=== PATIENT | female | born 1950 | race Caucasian/White ===

== ENCOUNTER 2016-08-28 19:25 | Emergency (ER) | payer BC, OTHER ==
--- NOTE | 2016-08-28 19:41 | PDOC ---
History of Present Illness - General History Source: Patient Exam Limitations: No Limitations - History of Present Illness Initial Comments: 08/28/16 20:02 The patient is a 66 year old female with significant past medical history of chronic back pain, and arthritis of the knees who presents to the ED with complaints of left groin pain that began this morning when the patient woke up. She describes the pain as a sharp pain, is non-radiating, but is accompanied with a sensation heaviness in her left leg. She does not relate this pain to her back pain. The patient reports a history of blood clot in her back secondary to surgery a few years ago. She reports taking percocet for her chronic pain- last dose was 5 mg at 5:00 pm. She denies any recent illness, fever, chills, nausea, vomiting, diarrhea, cough, shortness of breath, chest pain. PAST MEDICAL HISTORY: no significant history PAST SURGICAL HISTORY: no significant history FAMILY HISTORY: no pertinent history SOCIAL HISTORY: Pt lives with family and is employed. MEDICATIONS: reviewed ALLERGIES: As per nursing notes General: No fevers or chills, no weakness, no weight loss HEENT: No change in vision. No sore throat,. No ear pain CardioVascular: No chest pain or shortness of breath Respiratory:No cough, or wheezing. Gastrointestinal: no nausea, vomiting, diarrhea or constipation, No rectal bleeding Genitourinary: No dysuria, hematuria, or frequency Musculoskeletal: Left groin pain Neurologic: No headache, vertigo, dizziness or loss of consciousness Psychiatric: nor depression Skin: No rashes or easy bruising Endocrine: no increased thirst or abnormal weight change Allergic: no skin or latex allergy All other systems reviewed and normal GENERAL: The patient is awake, alert, morbidly obese, anxious appearing, and in moderate distress. Tearful at times during the interview. HEAD: Normal with no signs of trauma. EYES: Pupils equal, round and reactive to light, extraocular movements intact, sclera anicteric, conjunctiva clear. EXTREMITIES: No tenderness of bony structures of pelvis or hips, mild tenderness on palpation of interior aspect of left thigh, but no groin tenderness, no palpable groin masses, erythema, or hernia. No palpable cord, no bony tenderness on inside of thigh. No distal edema. Neurovascularly intact Pulses are palpable and normal in the groin, posterior knee, and dorsum of the foot. Extremity is warm and well profuse. NEUROLOGICAL: Normal speech, normal gait. PSYCH: Normal mood, normal affect. SKIN: Warm, Dry, normal turgor, no rashes or lesions noted. <Gardenia Zuluaga - Last Filed: 08/28/16 20:02> - General History Source: Patient Exam Limitations: No Limitations - History of Present Illness Initial Comments: 08/28/16 23:25 A portion of this note was documented by scribe services under my direction. I have reviewed the details of the note, within reason, and agree with the documentation. The case summary and management plan written by me. CT scan shows a partially occlusive deep vein thrombosis with any pro-fundal femoral branch. Assessment and plan: This is a 66-year-old female who came in complaining of pain in her inner thigh. Patient's Doppler does show a partially occlusive DVT. Patient given Lovenox in the emergency room and her family member was taught how to inject her with the Lovenox. Patient discharged home Patient has a primary care doctor she can follow-up with. Patient given instructions as to what to return for. <Roque Krishnamurthy I - Last Filed: 08/28/16 23:33> - General Chief Complaint: Pain, Acute Stated Complaint: LEFT GROIN PAIN Time Seen by Provider: 08/28/16 19:41 Past History <MelvinGardenia barrow - Last Filed: 08/28/16 20:02> <Roque Krishnamurthy I - Last Filed: 08/28/16 23:33> - Past Medical History Allergies/Adverse Reactions: Allergies Allergy/AdvReac Type Severity Reaction Status Date / Time morphine Allergy Mild Rash Verified 08/28/16 19:35 Home Medications: Ambulatory Orders Albuterol Sulfate Inhaler - [Ventolin Hfa Inhaler -] 1 - 2 inh PO QID PRN Amlodipine Besylate 5 mg PO DAILY 08/28/16 Enoxaparin [Lovenox -] 80 mg SQ DAILY #10 disp.syrin 08/28/16 Fenofibrate 40 mg PO HS 08/28/16 Lansoprazole [Prevacid] 30 mg PO DAILY 08/28/16 Oxycodone HCl/Acetaminophen [Percocet 5-325 mg Tablet] 1 - 2 tab PO Q4H PRN Simvastatin 10 mg PO HS 08/28/16 Review of Systems - Review of Systems Able to Perform ROS?: Yes All Other Systems: Reviewed and Negative <Gardenia Zuluaga - Last Filed: 08/28/16 20:02> *Physical Exam - Vital Signs Last Vital Signs Temp Pulse Resp BP Pulse Ox 98.4 F 88 20 140/66 95 08/28/16 19:35 08/28/16 19:35 08/28/16 19:35 08/28/16 19:35 08/28/16 19:35 <Gardenia Zuluaga - Last Filed: 08/28/16 20:02> *DC/Admit/Observation/Transfer - Attestations Scribe Attestion: 08/28/16 20:08 Documentation prepared by Gardenia Zuluaga, acting as forensic medical examiner for Roque Krishnamurthy MD. <issaGardenia - Last Filed: 08/28/16 20:02> - Discharge Dispostion Admit: No <Roque Krishnamurthy I - Last Filed: 08/28/16 23:33> Diagnosis at time of Disposition: DVT (deep venous thrombosis) Qualifiers: DVT location: lower extremity Affected thrombotic vein of extremity: femoral Laterality: left Chronicity: acute Qualified Code(s): I82.412 - Acute embolism and thrombosis of left femoral vein - Discharge Dispostion Disposition: HOME Condition at time of disposition: Good - Patient Instructions Printed Discharge Instructions: DI for Deep Vein Thrombosis Additional Instructions: I sent a prescription to your pharmacy for the injections. U will receive 10 syringes you need to have someone inject 1 syringe a day as discussed and showed in the emergency room. After 10 days it is likely your physician will be able to switch U to oral medication so it is important that you make an appointment for Tuesday to follow up with your physician next week. Return if you develop any chest pain, shortness of breath, pass out or any worsening symptoms. For the pain take your Percocet one or 2 tablets as often as every 4-6 hours as needed note the Percocet will make you constipated and he will make you drowsy. Return to the emergency department immediately with ANY new, persistent or worsening symptoms. Continue any medications as previously prescribed by your physician. You should follow up with your primary doctor as soon as possible regarding today's emergency department visit. . Please make sure your doctor reviews the results of your emergency evaluation. Thank you for coming to the Emergency Department today for your care. It was a pleasure to see you today. Please note that your evaluation is INCOMPLETE until you follow-up with your doctor.
[2016-08-28] MEDS ORDERED: KETOROLAC TROMETHAMINE 60 MG/2 ML VIAL IM ONE (20:02)
[2016-08-28 20:17] VITALS: BP 140/66; PULSE 88; TEMP 98.4; BMI 33.6
[2016-08-28] MEDS ORDERED: ENOXAPARIN NA (PORCINE) 100 MG/1 ML DISP.SYRIN SQ ONE (23:25)
[2016-08-28] MEDS ORDERED: OXYCODONE/APAP 5/325MG COMBO TABLET ONE (23:25)
[2016-08-28] MEDS ORDERED: OXYCODONE/APAP 5/325MG COMBO TABLET PO ONE (23:25)
[2016-08-28] MEDS ORDERED: ENOXAPARIN NA (PORCINE) 80 MG/0.8 ML DISP.SYRIN SQ SCH (23:30)
== END 2016-08-29 00:13 | disposition home or self-care (01) ==
LOC: FER 19:25 → SUPCPDRO 19:25 → FER 08-29 00:13
PROC: 3E023GC Introduction of Other Therapeutic Substance into Muscle, Percutaneous Approach (ICD-10-PCS; principal; 2016-08-28)
PROC: 3E0233Z Introduction of Anti-inflammatory into Muscle, Percutaneous Approach (ICD-10-PCS; 2016-08-28)
DX: I82.412 Acute embolism and thrombosis of left femoral vein (principal); Z86.718 Personal history of other venous thrombosis and embolism; Z79.01 Long term (current) use of anticoagulants; G89.29 Other chronic pain
CPT/HCPCS: 93971-TC; 99282-25

== ENCOUNTER 2016-08-30 05:04 | Emergency (ER) | payer BC, OTHER ==
--- NOTE | 2016-08-30 05:15 | PDOC ---
History of Present Illness - General Chief Complaint: Pain, Acute Stated Complaint: PAIN IN LEFT GROIN Time Seen by Provider: 08/30/16 05:12 History Source: Patient Exam Limitations: No Limitations - History of Present Illness Initial Comments: 08/30/16 05:12 This is a 66-year-old female who comes in complaining of pain in her abdomen where she is giving herself Lovenox injections, pain in her right leg has a diagnosed DVT that was no several days ago when she was here in the emergency room and now complaining of also pain in her left shoulder area. Patient had pain in her left shoulder area but patient said that the area under her arm is swollen she is concerned that he may have a blood clot as well. Patient denies any shortness of breath. Chest pain or any other complaints. PAST MEDICAL HISTORY: no significant history PAST SURGICAL HISTORY: no significant history FAMILY HISTORY: no pertinant history SOCIAL HISTORY: Pt lives with family and is employed. MEDICATIONS: reviewed ALLERGIES: As per nursing notes Review of Systems General: No fevers or chills, no weakness, no weight loss HEENT: No change in vision. No sore throat,. No ear pain CardioVascular: No chest pain or shortness of breath Respiratory:No cough, or wheezing. Gastrointestinal: no nausea, vomitting, diarrhea or constipation, No rectal bleeding Genitourinary: No dysuria, hematuria, or frequency Musculoskeletal: No joint or muscle pain or swelling Neurologic: No headache, vertigo, dizziness or loss of consciousness Psychiatric: nor depression Skin: No rashes or easy bruising Endocrine: no increased thirst or abnormal weight change Allergic: no skin or latex allergy All other systems reviewed and normal GENERAL: The patient is awake, alert, and fully oriented, in no acute distress. HEAD: Normal with no signs of trauma. EYES: Pupils equal, round and reactive to light, extraocular movements intact, sclera anicteric, conjunctiva clear. EXTREMITIES: Normal range of motion, Left lower extremity there is some edema of the foot. Left shoulder there is some tenderness on palpation. There is no palpable tender cord. Neurovascular distal is intact NEUROLOGICAL: Normal speech, normal gait. PSYCH: Normal mood, normal affect. SKIN: Warm, Dry, normal turgor, no rashes or lesions noted 08/30/16 06:37 Doppler ultrasound no DVT of the left upper extremity. Assessment and plan: This is a 66-year-old female who comes in complaining of leg swelling, patient has a diagnosed DVT for which she is taking Lovenox. Abdominal pain in the area of her injections. There is no evidence of infection but there is a small contusion in the area of the injection this is likely the source of her pain And shoulder pain. Patient does have chronic shoulder pain but given the fact she has a DVT I wanted to make sure that there was no additional DVTs of the left upper extremity. Patient had an ultrasound that was negative. Patient discharged home she has no appointment with her primary care doctor this morning and will keep it in follow-up. Past History - Past Medical History Allergies/Adverse Reactions: Allergies Allergy/AdvReac Type Severity Reaction Status Date / Time morphine Allergy Mild Rash Verified 08/30/16 05:05 Home Medications: Ambulatory Orders Albuterol Sulfate Inhaler - [Ventolin Hfa Inhaler -] 1 - 2 inh PO QID PRN Amlodipine Besylate 5 mg PO DAILY 08/28/16 Enoxaparin [Lovenox -] 80 mg SQ DAILY #10 disp.syrin 08/28/16 Fenofibrate 40 mg PO HS 08/28/16 Lansoprazole [Prevacid] 30 mg PO DAILY 08/28/16 Oxycodone HCl/Acetaminophen [Percocet 5-325 mg Tablet] 1 - 2 tab PO Q4H PRN Simvastatin 10 mg PO HS 08/28/16 Asthma: Yes Disorders: Yes (OVARIAN CYSTS) HTN: Yes Hypercholesterolemia: Yes - Psycho/Social/Smoking Cessation Hx Anxiety: No Suicidal Ideation: No Smoking History: Never smoked Hx Alcohol Use: No Drug/Substance Use Hx: No Substance Use Type: None *DC/Admit/Observation/Transfer Diagnosis at time of Disposition: DVT (deep venous thrombosis) Qualifiers: DVT location: lower extremity Affected thrombotic vein of extremity: femoral Laterality: left Chronicity: chronic Qualified Code(s): I82.512 - Chronic embolism and thrombosis of left femoral vein - Discharge Dispostion Disposition: HOME Condition at time of disposition: Stable Admit: No - Patient Instructions Additional Instructions: Make sure you keep your appointment with your doctor this morning. Continue to take your pain medications as prescribed. Continue to give herself the Lovenox injections. Return to the emergency department immediately with ANY new, persistent or worsening symptoms. Continue any medications as previously prescribed by your physician. You should follow up with your primary doctor as soon as possible regarding today's emergency department visit. . Please make sure your doctor reviews the results of your emergency evaluation. Thank you for coming to the Emergency Department today for your care. It was a pleasure to see you today. Please note that your evaluation is INCOMPLETE until you follow-up with your doctor.
[2016-08-30 05:20] VITALS: BP 138/73; PULSE 76; TEMP 98.1; BMI 33.6
== END 2016-08-30 06:42 | disposition home or self-care (01) ==
LOC: FER 05:04
DX: I82.512 Chronic embolism and thrombosis of left femoral vein (principal); J45.909 Unspecified asthma, uncomplicated; I10 Essential (primary) hypertension; E78.00 Pure hypercholesterolemia, unspecified
CPT/HCPCS: 93971; 99281-25

== ENCOUNTER 2017-07-17 16:45 | Emergency (ER) | payer BC, OTHER ==
[2017-07-17 17:09] VITALS: BP 165/80; PULSE 70; TEMP 98; BMI 33.5
[2017-07-17] MEDS ORDERED: ACETAMINOPHEN 325 MG TABLET (FP) PO ONE ×2 (17:13→22:23)
[2017-07-17] MEDS ORDERED: ACETAMINOPHEN 500 MG TABLET (FP) ONE (17:15)
--- NOTE | 2017-07-17 17:33 | PDOC ---
History of Present Illness - History of Present Illness Initial Comments: 07/17/17 17:44 66 y/o F with a PMH of HTN, migraines, vertigo, hypoglycemia, prior DVT, chronic back pain presents to the ED with a progressively worsening pounding headache for 6 days. Patient took fioricet with no relief. She measured her BP and noticed it was higher than usual (systolic: 140s to 170s). She spoke to her PCP who told her to take a higher dose of BP medication until her next appointment. She also reports sneezing, congestion, and left rib pain for the past 2 days. She reports the pain is worse with deep breath and movement and is better with certain movements. Denies fever, chills. Denies nausea, vomiting, diarrhea. Denies chest pain, shortness of breath, leg swelling, hemoptysis, LIU. <Kanchan Dubois - Last Filed: 07/17/17 17:44> <Greg Luna - Last Filed: 07/19/17 07:33> <Quintin Treadwell - Last Filed: 07/22/17 08:12> - General Chief Complaint: Pain Stated Complaint: BODY ACHES, LEFT RIB PAIN Time Seen by Provider: 07/17/17 16:57 Past History <Kanchan Dubois - Last Filed: 07/17/17 17:44> - Past Medical History Asthma: Yes COPD: No Disorders: Yes (OVARIAN CYSTS) HTN: Yes Hypercholesterolemia: Yes Other medical history: VERTIGO, HEADACHES - Surgical History Cholecystectomy: Yes - Suicide/Smoking/Psychosocial Hx Smoking History: Never smoked Have you smoked in the past 12 months: No Hx Alcohol Use: No Drug/Substance Use Hx: No Substance Use Type: None <Greg Luna - Last Filed: 07/19/17 07:33> <Quintin Treadwell - Last Filed: 07/22/17 08:12> - Past Medical History Allergies/Adverse Reactions: Allergies Allergy/AdvReac Type Severity Reaction Status Date / Time morphine Allergy Mild Rash Verified 07/17/17 17:01 Home Medications: Ambulatory Orders Albuterol Sulfate Inhaler - [Ventolin HFA Inhaler -] 1 - 2 inh PO QID PRN Amlodipine Besylate 5 mg PO DAILY 08/28/16 Fenofibrate 40 mg PO HS 08/28/16 Oxycodone HCl/Acetaminophen [Percocet 5-325 mg Tablet] 1 - 2 tab PO Q4H PRN Acetaminophen/Caffeine/Butalb [Fioricet -] 1 tab PO Q6H PRN 07/17/17 Meclizine HCl [Antivert -] 25 mg PO TID 07/17/17 Metoprolol Succinate [Toprol Xl] 25 mg PO DAILY 07/17/17 Simvastatin 20 mg PO DAILY 07/17/17 Review of Systems - Review of Systems Comments:: 07/17/17 17:44 CONSTITUTIONAL: No reported: Fever, Chills, Diaphoresis, Loss of Appetite HEENT: + Congestion, Sneezing. No reported: Rhinorrhea, Throat Pain, Throat Swelling, Difficulty Swallowing, Mouth Swelling, Ear Pain, Eye Pain, Visual Changes CARDIOVASCULAR: No reported: Chest Pain, Syncope, Palpitations, Irregular Heart Rate, Lightheadedness, Peripheral Edema RESPIRATORY: No reported: Cough, Shortness of Breath, SOB with Exertion, Orthopnea, Wheezing, Stridor, Hemoptysis GASTROINTESTINAL: No reported: Abdominal pain, Abdominal Distension, Nausea, Vomiting, Diarrhea, Constipation, Melena, Hematochezia GENITOURINARY: No reported: Dysuria, Frequency, Urgency, Hesitancy, Flank Pain, Genital Pain MUSCULOSKELETAL: + left rib pain. No reported: Myalgia, Arthralgia, Joint Swelling, Back pain, Neck Pain SKIN: No reported: Rash, Itching, Pallor HEMATOLOGIC/IMMUNOLOGIC: No reported: Easy Bleeding, Easy Bruising, Lymphadenopathy, Frequent infections ENDOCRINE: No reported: Unexplained Weight Gain, Unexplained Weight Loss, Heat Intolerance, Cold Intolerance NEUROLOGIC: + headache No reported: Focal Weakness, Paresthesias, Vertigo, Lightheadedness, Unsteady Gait, Seizure, Mental Status Changes, Incontinence PSYCHIATRIC: No reported: Anxiety, Depression <Kanchan Dubois - Last Filed: 07/17/17 17:44> *Physical Exam - Vital Signs Last Vital Signs Temp Pulse Resp BP Pulse Ox 98.0 F 70 18 165/80 97 07/17/17 16:56 07/17/17 16:56 07/17/17 16:56 07/17/17 16:56 07/17/17 16:56 - Physical Exam Comments: 07/17/17 17:44 GENERAL: The patient is awake, alert, and fully oriented, Nontoxic - in no acute distress. HEAD: Normocephalic, atraumatic. EYES: extraocular movements intact, sclera anicteric, conjunctiva clear. ENT: Normal voice, Moist mucous membranes. NECK: Normal range of motion, supple LUNGS/chest: Breath sounds equal, clear to auscultation bilaterally. No wheezes , no rhonchi, no rales. Mld tenderness in the L lateral chest wall on palpation. HEART: Regular rate and rhythm, normal S1 and S2 without murmur, rub or gallop. ABDOMEN: Soft, nontender, normoactive bowel sounds. No guarding, no rebound. . No CVA tenderness EXTREMITIES: Normal range of motion, no edema. no calf tenderness, negative homans sign. NEUROLOGICAL: No facial assymetry, Normal speech, moving all 4 extremities spontaneously and symmetrically . PSYCH: Normal mood, normal affect. SKIN: Warm, Dry, normal turgor, <Kanchan Dubois - Last Filed: 07/17/17 17:44> - Vital Signs Last Vital Signs Temp Pulse Resp BP Pulse Ox 98.0 F 70 18 165/80 97 07/17/17 16:56 07/17/17 16:56 07/17/17 16:56 07/17/17 16:56 07/17/17 16:56 <Greg Luna - Last Filed: 07/19/17 07:33> - Vital Signs Last Vital Signs Temp Pulse Resp BP Pulse Ox 98.0 F 70 18 165/80 97 07/17/17 16:56 07/17/17 16:56 07/17/17 16:56 07/17/17 16:56 07/17/17 16:56 <Quintin Treadwell - Last Filed: 07/22/17 08:12> Heart Score/ECG Review - ECG Impressions Comment:: 07/17/17 18:10 Twelve-lead EKG was performed and reviewed by me. There is normal sinus rhythm with a normal rate. rate of 64 left axis deviation incomplete RBBB twi in anterior leads, flattening in lateral leads no old ekgs for comparison <Greg Luna - Last Filed: 07/19/17 07:33> ED Treatment Course - LABORATORY CBC & Chemistry Diagram: 07/17/17 17:25 07/17/17 17:25 - Medications Given in the ED: ED Medications Discontinued Medications Generic Name Dose Route Start Last Admin Trade Name Freq PRN Reason Stop Dose Admin Acetaminophen 975 mg 07/17/17 17:13 07/17/17 17:15 Tylenol - PO 07/17/17 17:14 975 mg ONCE ONE Administration <Kanchan Dubois A - Last Filed: 07/17/17 17:44> - LABORATORY CBC & Chemistry Diagram: 07/17/17 17:25 07/17/17 17:25 - RADIOLOGY Radiology Studies Ordered: Category Date Time Status CHEST PA & LAT [RAD] Stat Radiology 07/17/17 17:13 Ordered - Medications Given in the ED: ED Medications Discontinued Medications Generic Name Dose Route Start Last Admin Trade Name Freq PRN Reason Stop Dose Admin Acetaminophen 975 mg 07/17/17 17:13 07/17/17 17:15 Tylenol - PO 07/17/17 17:14 975 mg ONCE ONE Administration <Greg Luna - Last Filed: 07/19/17 07:33> - LABORATORY CBC & Chemistry Diagram: 07/17/17 17:25 07/17/17 17:25 - ADDITIONAL ORDERS Additional order review: Laboratory Results 07/17/17 07/17/17 07/17/17 21:40 18:20 17:25 D-Dimer < 209 Sodium 133 L Potassium 3.8 Chloride 94 L Carbon Dioxide 29 H Anion Gap 10 BUN 13 Creatinine 0.4 L Creat Clearance w eGFR > 60 Random Glucose 230 H Calcium 9.7 Total Bilirubin 0.3 AST 29 ALT 31 Alkaline Phosphatase 78 Creatine Kinase 82 Troponin I 0.12 0.13 Total Protein 8.1 Albumin 4.0 07/17/17 18:20 Influenza Types A,B Antigen (VIMAL) - Final Nasopharyngeal Swab - Final 07/17/17 17:25 RBC 4.69 MCV 91.8 MCHC 33.9 RDW 12.6 MPV 8.9 Neutrophils % 59.6 Lymphocytes % 29.8 Monocytes % 5.2 Eosinophils % 4.2 Basophils % 1.2 - Medications Given in the ED: ED Medications Discontinued Medications Generic Name Dose Route Start Last Admin Trade Name Freq PRN Reason Stop Dose Admin Acetaminophen 975 mg 07/17/17 17:13 07/17/17 17:15 Tylenol - PO 07/17/17 17:14 975 mg ONCE ONE Administration Acetaminophen 650 mg 07/17/17 22:23 07/17/17 22:23 Tylenol - PO 07/17/17 22:24 650 mg NOW ONE Administration <Quintin Treadwell - Last Filed: 07/22/17 08:12> Medical Decision Making - Medical Decision Making 07/17/17 17:34 66y F hx of dvt (off a/c at this point), HL, HTN, presents with complaint of L sided chest pain. Pt states that she has been having a mild gradual onset headache since tuesday, noticed her BP was alittle elevated (160-170s sbp) and starting yesterday started to have congestion, sneezing, body aches, mild coughing as well as a left sided ches pain that seems worse with deep breaths and movements. Pt denies hemoptysis, sob, liu, fever/chill, leg swelling. + sick contacts as grandchild has some congestion, URI symptoms. on exam the pt appears in no distress, but when she moves she does appaer to have some discomfort in the left flank. differential includes uri, pna, influenza, consider acs however as the pain is positional it seems more muscular will ck labs including trops, cbc, cmp, will ck screning ekg, cxr will give tylenol will reassess if all negative, will treat with tamiflu A portion of this note was documented by scribe services under my direction. I have reviewed the details of the note, within reason, and agree with the documentation with the following case summary and management plan written by me 07/17/17 18:13 pts labs reviewed no leukocytosis noted or left shift cxr shows no infitlrate or acute process on my read awaiting trop - if neg, will dc the pt with pmd fu and with tamiflu 07/17/17 18:16 pts trop is 0.13 - will send a d-dimer to screen for pE as pt does have a hx of DVT and is currently off AC will also send repeat trop to ensure it is not increasing. 07/17/17 19:16 Pt signed out to dr. Chang to fu dimer and second trop if dimer elevated will consider CTA to r/o PE <Greg Luna - Last Filed: 07/19/17 07:33> - Medical Decision Making Patient signed out to me by Dr. jimenes. Awaiting second set of cardiac enzymes and d-dimer Troponin unchanged after repeat. D-dimer negative. Patient feels much better. Asymptomatic, fully alert and ambulatory, in no distress upon discharge to follow-up as directed with her primary physician or return to ER if symptoms worsen. <Quintin Treadwell - Last Filed: 07/22/17 08:12> *DC/Admit/Observation/Transfer - Attestations Scribe Attestion: 07/17/17 17:44 Documentation prepared by Kanchan Dubois, acting as medical billing assistant for Greg Luna MD. <Kanchan Dubois - Last Filed: 07/17/17 17:44> - Discharge Dispostion Admit: No <Greg Luna - Last Filed: 07/19/17 07:33> <Quintin Treadwell - Last Filed: 07/22/17 08:12> Diagnosis at time of Disposition: Viral syndrome - Discharge Dispostion Disposition: HOME Condition at time of disposition: Stable - Patient Instructions Printed Discharge Instructions: DI for Viral Syndrome Additional Instructions: Rest, fluids, medication as directed. Return to ER if there is high fever, chest pain, or difficulty breathing. Otherwise follow-up with your family physician.
[2017-07-17 17:54] LABS: BASO % 1.2 % (0-2.0); EOS % 4.2 % (0-4.5); HEMOGLOBIN 14.6 GM/dl (10.7-15.3); LYMPH % 29.8 % (8-40); MCH 31.1 pg (25.7-33.7); MCHC 33.9 g/dl (32.0-36.0); MEAN CELL VOLUME 91.8 fl (80-96); MEAN PLT VOLUME 8.9 fl (7.5-11.1); MONO % 5.2 % (3.8-10.2); NEUT % 59.6 % (42.8-82.8); PLATELET COUNT 297 K/MM3 (134-434); RBC 4.69 M/mm3 (3.60-5.2); RDW 12.6 % (11.6-15.6); WHITE BLOOD COUNT 9.2 K/mm3 (4.0-10.8)
[2017-07-17 17:59] LABS: ALK PHOS 78 U/L (32-92); ANION GAP 10 (8-16); BILIRUBIN,TOTAL 0.3 mg/dl (0.2-1.0); BLOOD UREA NITROGEN 13 mg/dl (7-18); CALCIUM 9.7 mg/dl (8.4-10.2); CHLORIDE 94 mmol/L (98-107); CO2 29 mmol/L (22-28); CREATININE 0.4 mg/dl (0.6-1.3); GLUCOSE,RANDOM 230 mg/dl (74-106); POTASSIUM 3.8 mmol/L (3.5-5.1); SGOT/AST 29 U/L (10-42); SGPT/ALT 31 U/L (10-40); SODIUM 133 mmol/L (136-145); TOT PROT 8.1 g/dl (6.4-8.3)
[2017-07-17 18:13] LABS: TROPONIN I (DFP) 0.13 ng/ml (0.03-0.50)
[2017-07-17] MEDS ORDERED: ACETAMINOPHEN 325 MG TABLET (FP) ONE (22:24)
--- NOTE | 2017-07-18 15:48 | EKG ---
Test Reason : Blood Pressure : / mmHG Vent. Rate : 064 BPM Atrial Rate : 064 BPM P-R Int : 200 ms QRS Dur : 092 ms QT Int : 452 ms P-R-T Axes : 058 -49 049 degrees QTc Int : 466 ms NORMAL SINUS RHYTHM WITH SINUS ARRHYTHMIA POSSIBLE LEFT ATRIAL ENLARGEMENT LEFT ANTERIOR FASCICULAR BLOCK INCOMPLETE RIGHT BUNDLE BRANCH BLOCK NONSPECIFIC T WAVE ABNORMALITY ABNORMAL ECG NO PREVIOUS ECGS AVAILABLE Confirmed by AMANDA PRESSLEY, WHITNEY ([id number]) on 07/18/2017 3:48:29 PM Referred By: DR IBARRA Confirmed By:WHITNEY PATEL MD
== END 2017-07-17 23:01 | disposition home or self-care (01) ==
LOC: FER 16:45
DX: B34.9 Viral infection, unspecified (principal); I10 Essential (primary) hypertension; E78.5 Hyperlipidemia, unspecified; Z86.718 Personal history of other venous thrombosis and embolism
CPT/HCPCS: 36415; 71046-TC; 80053; 82550; 84484; 85025; 85379; 87804; 93005; 99283-25

== ENCOUNTER 2017-09-20 22:36 | Emergency (ER) | payer BC, OTHER ==
--- NOTE | 2017-09-20 22:39 | PDOC ---
History of Present Illness - General Chief Complaint: Hematuria Stated Complaint: BLOOD IN URINE/FLANK PAIN Time Seen by Provider: 09/20/17 22:39 History Source: Patient Exam Limitations: No Limitations - History of Present Illness Initial Comments: 09/20/17 23:35 This is a 67-year-old female who comes in complaining of hematuria. Patient said she has had 2 episodes of blood in her urine. Otherwise patient denies any abdominal pain, flank pain nausea vomiting or diarrhea. Patient denies any fevers or chills. Patient has a history significant for ureteral obstruction in the past and has had 5 stents placed for ureteral obstruction. PAST MEDICAL HISTORY: As per history of present illness PAST SURGICAL HISTORY: Ureteral stents, hysterectomy FAMILY HISTORY: no pertinant history SOCIAL HISTORY: Pt lives with family and is employed. MEDICATIONS: reviewed ALLERGIES: As per nursing notes Review of Systems General: No fevers or chills, no weakness, no weight loss HEENT: No change in vision. No sore throat,. No ear pain CardioVascular: No chest pain or shortness of breath Respiratory:No cough, or wheezing. Gastrointestinal: no nausea, vomitting, diarrhea or constipation, No rectal bleeding Genitourinary: No dysuria, hematuria, or frequency Musculoskeletal: No joint or muscle pain or swelling Neurologic: No headache, vertigo, dizziness or loss of consciousness Psychiatric: nor depression Skin: No rashes or easy bruising Endocrine: no increased thirst or abnormal weight change Allergic: no skin or latex allergy All other systems reviewed and normal Exam: General: Well-nourished well-developed individual, no acute distress HEENT: Throat: Normal, tonsils normal, no erythema or exudate Neck: Supple, no meningeal signs, no lymphadenopathy Eyes::Pupils equal reactive and round, extraocular motion intact Chest: Nontender to palpation Cardiac: S1-S2 normal, regular rate and rhythm, no murmurs rubs or gallops Respiratory: Lungs clear to auscultation bilateral Abdomen: Soft, nondistended, normal bowel sounds, nontender to palpation diffusely Extremities: Warm, dry, no cyanosis, clubbing, or edema Skin: No rashes Neuro: Alert and oriented x3, CN II - XII intact, nonfocal exam with normal strength, normal sensation, normal reflexes, normal gait, Psych: Normal mood and affect Assessment and plan: This is a 67-year-old female who comes in complaining of 2 episodes of hematuria. Patient has history significant for ureteral obstruction in the past. Patient denies any fevers or chills back or flank pain. Will obtain workup including CBC, comp, UA, CAT scan abdomen and pelvis to rule out ureteral obstruction or stone. Differential diagnosis includes hemorrhagic cystitis, kidney stone. Hematuria, Will reassess and follow-up on workup 09/21/17 00:25 Reassessment patient remains without complaints, patient's urinalysis is positive for red cells white cells and bacteria. Will give patient a dose of IV antibiotics ceftriaxone as her CAT scan shows some mild perinephric edema most likely an early pyelonephritis. Patient otherwise has no CVA tenderness, she has a white count of 11 and she is afebrile. Patient will be discharged home on Macrobid and will follow-up with her doctor in a couple a days. Patient given good instructions to return if she develops fevers increasing pain or any other concerns. Past History - Past Medical History Allergies/Adverse Reactions: Allergies Allergy/AdvReac Type Severity Reaction Status Date / Time morphine Allergy Mild Rash Verified 09/20/17 22:38 Home Medications: Ambulatory Orders Albuterol Sulfate Inhaler - [Ventolin HFA Inhaler -] 1 - 2 inh PO QID PRN Amlodipine Besylate 5 mg PO DAILY 08/28/16 Fenofibrate 40 mg PO HS 08/28/16 Oxycodone HCl/Acetaminophen [Percocet 5-325 mg Tablet] 1 - 2 tab PO Q4H PRN Acetaminophen/Caffeine/Butalb [Fioricet -] 1 tab PO Q6H PRN 07/17/17 Meclizine HCl [Antivert -] 25 mg PO TID 07/17/17 Metoprolol Succinate [Toprol Xl] 25 mg PO DAILY 07/17/17 Simvastatin 20 mg PO DAILY 07/17/17 Asthma: Yes COPD: No Disorders: Yes (OVARIAN CYSTS) HTN: Yes Hypercholesterolemia: Yes - Surgical History Cholecystectomy: Yes - Suicide/Smoking/Psychosocial Hx Smoking History: Never smoked Have you smoked in the past 12 months: No Hx Alcohol Use: No Drug/Substance Use Hx: No Substance Use Type: None ED Treatment Course - LABORATORY CBC & Chemistry Diagram: 09/20/17 23:10 09/20/17 23:10 *DC/Admit/Observation/Transfer Diagnosis at time of Disposition: Cystitis, Pyelonephritis, acute - Discharge Dispostion Disposition: HOME Condition at time of disposition: Stable Admit: No - Referrals - Patient Instructions Printed Discharge Instructions: DI for Kidney Infection Additional Instructions: You were given a dose of IV antibiotics in the emergency room so you do not need to take your next dose of antibiotics until tomorrow morning. Get your prescription filled for Macrodantin and take one tablet twice a day for the next 10 days. Follow-up with your doctor in 2-3 days If you develop increasing back pain, fever, shaking chills return to the emergency room for reevaluation or see her primary care doctor. Return to the emergency department immediately with ANY new, persistent or worsening symptoms. Continue any medications as previously prescribed by your physician. . Please make sure your doctor reviews the results of your emergency evaluation. Thank you for coming to the Emergency Department today for your care. It was a pleasure to see you today. Please note that your evaluation is INCOMPLETE until you follow-up with your doctor. - Post Discharge Activity
[2017-09-20] MEDS ORDERED: SODIUM CHLORIDE 1,000 ML IV SCH ×2 (22:45→23:15)
[2017-09-20 23:04] LABS: URINE APPEARANCE Clear; URINE BILIRUBIN Negative (NEGATIVE); URINE BLOOD Negative (NEGATIVE); URINE GLUCOSE (UA) Negative (NEGATIVE); URINE KETONE Negative (NEGATIVE); URINE NITRITE Negative (NEGATIVE); URINE PROTEIN Negative (NEGATIVE)
[2017-09-20 23:05] LABS: URINE COLOR YELLOW; URINE LEUK ESTERASE 3+ (NEGATIVE)
[2017-09-20 23:18] VITALS: BP 123/53; PULSE 65; TEMP 98.1; BMI 34.5
[2017-09-20 23:18] LABS: EPI CELLS FEW /HPF; URINE BACTERIA MODERATE /hpf (NEGATIVE); URINE RBC 0-2 /hpf (0-3); URINE WBC 20-30 (0-5)
[2017-09-20 23:21] LABS: BASO % 1.3 % (0-2.0); EOS % 2.9 % (0-4.5); HEMATOCRIT 42.3 % (32.4-45.2); HEMOGLOBIN 14.1 GM/dl (10.7-15.3); LYMPH % 27.1 % (8-40); MCH 30.3 pg (25.7-33.7); MCHC 33.4 g/dl (32.0-36.0); MEAN CELL VOLUME 90.6 fl (80-96); MEAN PLT VOLUME 8.3 fl (7.5-11.1); MONO % 5.2 % (3.8-10.2); NEUT % 63.5 % (42.8-82.8); PLATELET COUNT 374 K/MM3 (134-434); RBC 4.67 M/mm3 (3.60-5.2); RDW 12.7 % (11.6-15.6); WHITE BLOOD COUNT 11.1 K/mm3 (4.0-10.8)
[2017-09-20 23:38] LABS: ALBUMIN 4.1 g/dl (3.5-5.0); ALK PHOS 66 U/L (32-92); ANION GAP 6 (8-16); BLOOD UREA NITROGEN 13 mg/dl (7-18); CALCIUM 9.2 mg/dl (8.4-10.2); CHLORIDE 101 mmol/L (98-107); CO2 25 mmol/L (22-28); GLUCOSE,RANDOM 127 mg/dl (74-106); POTASSIUM 3.7 mmol/L (3.5-5.1); SGOT/AST 42 U/L (10-42); SGPT/ALT 36 U/L (10-40); SODIUM 132 mmol/L (136-145); TOT PROT 8.1 g/dl (6.4-8.3)
[2017-09-20 23:46] LABS: BILIRUBIN,TOTAL < 0.5 mg/dl (0.2-1.0); CREATININE < 0.8 mg/dl (0.6-1.3)
[2017-09-21] MEDS ORDERED: CEFTRIAXONE 1 GM in DEXTROSE 5%-WATER - 50 ML IVPB ONE (00:43)
[2017-09-21] MEDS ORDERED: NITROFURANTOIN MACROCRYSTAL 50 MG CAPSULE (FP) PO SCH (00:45)
[2017-09-21] MEDS ORDERED: cefTRIAXone SODIUM 1 GM VIAL ONE (00:46)
== END 2017-09-21 01:33 | disposition home or self-care (01) ==
LOC: FER 22:36
PROC: 3E03329 Introduction of Other Anti-infective into Peripheral Vein, Percutaneous Approach (ICD-10-PCS; principal; 2017-09-20)
PROC: 3E0337Z Introduction of Electrolytic and Water Balance Substance into Peripheral Vein, Percutaneous Approach (ICD-10-PCS; 2017-09-20)
DX: N30.91 Cystitis, unspecified with hematuria (principal); N10 Acute pyelonephritis; I10 Essential (primary) hypertension; J45.909 Unspecified asthma, uncomplicated; E78.00 Pure hypercholesterolemia, unspecified
CPT/HCPCS: 36415; 74176-TC; 80053; 81003; 81015; 85025; 87086; 99281-25; J7030

== ENCOUNTER 2017-10-05 14:35 | Emergency (ER) | payer BC, OTHER ==
--- NOTE | 2017-10-05 15:49 | PDOC ---
History of Present Illness - General History Source: Patient Exam Limitations: No Limitations - History of Present Illness Initial Comments: 10/05/17 16:20 The patient is a 67 year old female with significant past medical history of asthma, Ovarian cysts, HTN, HLD, Cholecystectomy, chronic back, and hypercholesterolemia presents to the ED complaining of left lower back pain since the last 2 weeks. The patient reports being hospitalized 3 weeks ago diagnosed with pyelonephritis. The patient reports taking antibiotics which caused her to feel nauseous. The patient reports the pain is reminiscent to the pain she had in 1996 when she had a renal stent placed. The patient states leaning right and not moving provided mild relief. The patient denies, dysuria, hematuria, frequency or urgency in urination, melena, hematochezia, diarrhea, constipation, fever, chills, vomiting. The patient denies chest pain, shortness of breath. Allergies: Morphine 10/05/17 16:22 <Shelby Wray - Last Filed: 10/05/17 17:45> <Danni Flanagan - Last Filed: 10/08/17 09:21> - General Chief Complaint: Back Pain Stated Complaint: LEFT LOWER BACK PAIN Time Seen by Provider: 10/05/17 15:31 Past History <Shelby Wray - Last Filed: 10/05/17 17:45> - Past Medical History Asthma: Yes COPD: No Diabetes: Yes Disorders: Yes (OVARIAN CYSTS,UTI) HTN: Yes Hypercholesterolemia: Yes - Surgical History Cholecystectomy: Yes - Suicide/Smoking/Psychosocial Hx Smoking History: Never smoked Have you smoked in the past 12 months: No If you are a former smoker, when did you quit?: 5 Hx Alcohol Use: No Drug/Substance Use Hx: No Substance Use Type: None <Danni Flanagan - Last Filed: 10/08/17 09:21> - Past Medical History Allergies/Adverse Reactions: Allergies Allergy/AdvReac Type Severity Reaction Status Date / Time morphine Allergy Mild Rash Verified 10/05/17 15:27 Home Medications: Ambulatory Orders Albuterol Sulfate Inhaler - [Ventolin HFA Inhaler -] 1 - 2 inh PO QID PRN Amlodipine Besylate 5 mg PO DAILY 08/28/16 Fenofibrate 40 mg PO HS 08/28/16 Oxycodone HCl/Acetaminophen [Percocet 5-325 mg Tablet] 1 - 2 tab PO Q4H PRN Acetaminophen/Caffeine/Butalb [Fioricet -] 1 tab PO Q6H PRN 07/17/17 Meclizine HCl [Antivert -] 25 mg PO TID PRN 07/17/17 Metoprolol Succinate [Toprol Xl] 25 mg PO DAILY 07/17/17 Simvastatin 10 mg PO DAILY 07/17/17 Sitagliptin Phosphate [Januvia] 25 mg PO DAILY 10/05/17 Review of Systems - Review of Systems Comments:: 10/05/17 16:21 GENERAL/CONSTITUTIONAL: No fever or chills. No weakness. HEAD, EYES, EARS, NOSE AND THROAT: No change in vision. No ear pain or discharge. No sore throat. CARDIOVASCULAR: No chest pain or shortness of breath. RESPIRATORY: No cough, wheezing, or hemoptysis. GASTROINTESTINAL: (+) nausea. No vomiting, diarrhea or constipation. GENITOURINARY: No dysuria, frequency, or change in urination. MUSCULOSKELETAL: (+) back pain. No joint or muscle swelling or pain. No neck SKIN: No rash NEUROLOGIC: No headache, vertigo, loss of consciousness, or change in strength/ sensation. ENDOCRINE: No increased thirst. No abnormal weight change. HEMATOLOGIC/LYMPHATIC: No anemia, easy bleeding, or history of blood clots. ALLERGIC/IMMUNOLOGIC: No hives or skin allergy. <Shelby Wray - Last Filed: 10/05/17 17:45> *Physical Exam - Vital Signs Last Vital Signs Temp Pulse Resp BP Pulse Ox 98.4 F 63 18 129/68 96 10/05/17 15:29 10/05/17 15:29 10/05/17 15:29 10/05/17 15:29 10/05/17 15:29 - Physical Exam Comments: 10/05/17 16:22 GENERAL: (+) looks uncomfortable. Awake, alert, and fully oriented, in no acute distress HEAD: No signs of trauma EYES: PERRLA, EOMI, sclera anicteric, conjunctiva clear ENT: (+) Dry mucosa. Auricles normal inspection, hearing grossly normal, nares patent, oropharynx clear without exudates. NECK: Normal ROM, supple, no lymphadenopathy, JVD, or masses LUNGS: Breath sounds equal, clear to auscultation bilaterally. No wheezes, and no crackles HEART: Regular rate and rhythm, normal S1 and S2, no murmurs, rubs or gallops ABDOMEN: (+) Epigastric tenderness and Left CVA tenderness. Soft, nontender, normoactive bowel sounds. No guarding, no rebound. No masses EXTREMITIES: Normal range of motion, no edema. No clubbing or cyanosis. No cords, erythema, or tenderness NEUROLOGICAL: Cranial nerves II through XII grossly intact. Normal speech, SKIN: Warm, Dry, normal turgor, no rashes or lesions noted. <Shelby Wray - Last Filed: 10/05/17 17:45> - Vital Signs Last Vital Signs Temp Pulse Resp BP Pulse Ox 98.4 F 63 18 129/68 96 10/05/17 15:29 10/05/17 15:29 10/05/17 15:29 10/05/17 15:29 10/05/17 15:29 <Danni Flanagan - Last Filed: 10/08/17 09:21> ED Treatment Course - LABORATORY CBC & Chemistry Diagram: 10/05/17 16:45 10/05/17 16:45 - RADIOLOGY Radiograph Interpretation: 10/05/17 17:45 EXAM#: TYPE/EXAM: RESULT: [id number] CT/SPIRAL- RENAL-STONE CT INDICATION: History of ureteral obstruction. Left flank pain and urinary tract infection. TECHNIQUE: CT scan of the abdomen and pelvis without oral contrast and without intravenous contrast. COMPARISON: 09/20/2017 CT abdomen/pelvis. FINDINGS: Evaluation of the solid viscera, bowel and vessels is limited without contrast. There is a 4 mm solid noncalcified nodule in the posterior left lung base ( image 13 of series 4), unchanged in size. The heart is nonenlarged. There are coronary artery calcifications. Normal liver size and contour. There is hepatic steatosis with geographic areas of sparing in the gallbladder fossa and adjacent to the central portal vein. Status post cholecystectomy. There is unchanged dilatation of the common bile duct measuring up to 9 mm in diameter which is most likely physiologic change postcholecystectomy. The unenhanced pancreas is unremarkable. Normal size spleen. There is no adrenal gland mass or nodule. The kidneys are normal size. There are no renal or ureteral calculi. There is no hydroureteronephrosis. There is a 5 mm rounded calcification along the right gonadal vein (image 89 of series 2), unchanged from prior. Normal caliber abdominal aorta with mild calcific atherosclerosis including the right renal artery ostium. There is also mild calcific atherosclerosis along the common iliac and internal iliac arteries. Enlarged portacaval lymph node is unchanged from prior. Otherwise, there are no pathologically enlarged lymph nodes by CT size criteria within the remainder of the abdomen or [place]. There are no dilated loops of large or small bowel to suggest obstruction. There are diverticula scattered along the descending and sigmoid colon with no evidence of diverticulitis. A normal- appearing appendix is visualized. There is no free intraperitoneal air or ascites. No evidence of urinary bladder calculus. No definite urinary bladder wall thickening. The uterus is surgically absent. There is sacralization of L5. Status post L5 laminotomy. No acute fracture in the visualized osseous structures. There is facet arthropathy at L4-L5 and L5-S1 (severe on the right), with osteophyte narrowing the right lateral recess and encroaching on the right S1 nerve root. IMPRESSION: 1. No obstructive uropathy. No evidence of urinary tract calculus. 2. Hepatic steatosis. 3. Please refer to the report above for additional findings. Reported By: Jf Sloan DO <Shelby Wray - Last Filed: 10/05/17 17:45> - LABORATORY CBC & Chemistry Diagram: 10/05/17 16:45 10/05/17 16:45 <Danni Flanagan - Last Filed: 10/08/17 09:21> Medical Decision Making - Medical Decision Making 10/05/17 18:08 Patient resting comfortably. Results d/w daughter at bedside. CT no acute findings. CBC and UA wnl. CMP pending. Will await CMP and reassess. <Danni Flanagan - Last Filed: 10/08/17 09:21> *DC/Admit/Observation/Transfer - Attestations Scribe Attestion: 10/05/17 16:25 Documentation prepared by Shelby Wray, acting as emergency medical technician/driver for Danni Flanagan MD <Shelby Wray - Last Filed: 10/05/17 17:45> <Danni Flanagan - Last Filed: 10/08/17 09:21> Diagnosis at time of Disposition: Left flank pain - Discharge Dispostion Disposition: HOME Condition at time of disposition: Stable - Referrals Referrals: Yaron Umanzor MD [Staff Physician] - 1 week - Patient Instructions Printed Discharge Instructions: DI for Flank Pain Additional Instructions: Continue to drink plenty of water Ibuprofen/naproxen/acetaminophen as needed for pain Follow-up with your primary doctor on October 11 as scheduled Follow-up with spine orthopedist () within 7-10 days Return to ER or see your primary doctor if you see a rash in the area of pain Return to ER if you have severe pain/vomiting/fever
[2017-10-05 16:02] VITALS: BP 129/68; PULSE 63; TEMP 98.4; BMI 34.5
[2017-10-05] MEDS ORDERED: ACETAMINOPHEN 1000 MG/100 ML VIAL (NON FORMULARY) IVPB ONE (16:14)
[2017-10-05] MEDS ORDERED: ONDANSETRON 4 MG/2 ML VIAL IVPUSH ONE (16:14)
[2017-10-05] MEDS ORDERED: SODIUM CHLORIDE 1,000 ML IV STA (16:14)
[2017-10-05] MEDS ORDERED: ACETAMINOPHEN INJECTION 100 ML IVPB ONE (16:23)
[2017-10-05] MEDS ORDERED: ONDANSETRON 4 MG/2 ML VIAL ONE (16:23)
[2017-10-05 16:31] LABS: URINE APPEARANCE Clear; URINE BILIRUBIN Negative (NEGATIVE); URINE BLOOD Negative (NEGATIVE); URINE GLUCOSE (UA) Negative (NEGATIVE); URINE KETONE Negative (NEGATIVE); URINE NITRITE Negative (NEGATIVE); URINE PROTEIN Negative (NEGATIVE)
[2017-10-05 16:33] LABS: URINE COLOR YELLOW; URINE LEUK ESTERASE TRACE (NEGATIVE)
[2017-10-05 17:32] LABS: BASO % 1.8 % (0-2.0); EOS % 3.2 % (0-4.5); HEMATOCRIT 43.9 % (32.4-45.2); HEMOGLOBIN 14.4 GM/dl (10.7-15.3); LYMPH % 32.5 % (8-40); MCH 29.9 pg (25.7-33.7); MCHC 32.8 g/dl (32.0-36.0); MEAN CELL VOLUME 91.2 fl (80-96); MEAN PLT VOLUME 8.9 fl (7.5-11.1); MONO % 5.7 % (3.8-10.2); NEUT % 56.8 % (42.8-82.8); PLATELET COUNT 367 K/MM3 (134-434); RBC 4.81 M/mm3 (3.60-5.2); RDW 12.9 % (11.6-15.6); WHITE BLOOD COUNT 10.3 K/mm3 (4.0-10.8)
[2017-10-05 17:48] LABS: ALBUMIN 3.9 g/dl (3.5-5.0); ALK PHOS 62 U/L (32-92); ANION GAP 6 (8-16); BILIRUBIN,TOTAL 0.3 mg/dl (0.2-1.0); BLOOD UREA NITROGEN 13 mg/dl (7-18); CALCIUM 9.6 mg/dl (8.4-10.2); CHLORIDE 102 mmol/L (98-107); CO2 25 mmol/L (22-28); GLUCOSE,RANDOM 107 mg/dl (74-106); POTASSIUM 4.3 mmol/L (3.5-5.1); SGOT/AST 32 U/L (10-42); SGPT/ALT 35 U/L (10-40); SODIUM 133 mmol/L (136-145); TOT PROT 7.9 g/dl (6.4-8.3)
[2017-10-05 18:18] LABS: CREATININE 0.5 mg/dl (0.6-1.3)
--- NOTE | 2017-10-05 20:13 | PDOC ---
*Physical Exam - Vital Signs Last Vital Signs Temp Pulse Resp BP Pulse Ox 98.4 F 63 18 129/68 96 10/05/17 15:29 10/05/17 15:29 10/05/17 15:29 10/05/17 15:29 10/05/17 15:29 ED Treatment Course - LABORATORY CBC & Chemistry Diagram: 10/05/17 16:45 10/05/17 16:45 - ADDITIONAL ORDERS Additional order review: Laboratory Results 10/05/17 10/05/17 16:45 16:11 Sodium 133 L Potassium 4.3 Chloride 102 Carbon Dioxide 25 Anion Gap 6 L BUN 13 Creatinine 0.5 L D Creat Clearance w eGFR > 60 Random Glucose 107 H Calcium 9.6 Total Bilirubin 0.3 D AST 32 D ALT 35 Alkaline Phosphatase 62 Total Protein 7.9 Albumin 3.9 Urine Color Yellow Urine Appearance Clear Urine pH 7.0 Ur Specific [place] 1.015 Urine Protein Negative Urine Glucose (UA) Negative Urine Ketones Negative Urine Blood Negative Urine Nitrite Negative Urine Bilirubin Negative Urine Urobilinogen 1.0 Ur Leukocyte Esterase Trace H D 10/05/17 16:45 RBC 4.81 MCV 91.2 MCHC 32.8 RDW 12.9 MPV 8.9 Neutrophils % 56.8 Lymphocytes % 32.5 Monocytes % 5.7 Eosinophils % 3.2 Basophils % 1.8 - Medications Given in the ED: ED Medications Discontinued Medications Generic Name Dose Route Start Last Admin Trade Name Rishiq PRN Reason Stop Dose Admin Acetaminophen 1,000 mg 10/05/17 16:14 10/05/17 16:44 Ofirmev Injection - IVPB 10/05/17 16:15 1,000 mg ONCE ONE Administration Sodium Chloride 1,000 mls @ 1,000 mls/hr 10/05/17 16:14 10/05/17 16:30 Normal Saline - IV 10/05/17 17:13 1,000 mls/hr ASDIR STA Administration Ondansetron HCl 4 mg 10/05/17 16:14 10/05/17 16:44 Zofran Injection IVPUSH 10/05/17 16:15 4 mg ONCE ONE Administration Progress Note - Progress Note Progress Note: Care of this patient received from Dr. Flanagan. Lipase is normal at 200. Results discussed with the patient. Her flank pain is somewhat improved; she has developed a generalized mild headache while awaiting results. Patient states that she intermittently has headaches and this is not different from previous episodes. Patient has no history of peptic ulcer disease or other contraindications for nonsteroidal anti-inflammatory medications. She intermittently takes these medications at home. We will give patient Toradol 30 mg IV for her headache and her residual mild flank pain. Patient reports some improvement in headache and flank pain after Toradol IV. Etiology of the flank pain is unclear at this time; although renal stone/ infection, colonic processes, pancreatic abnormalities and other intra- abdominal issues do not seem to be occurring, patient should still follow up with her private medical doctor as scheduled on October 11. She also has not had a spinal doctor reassess her in many years. Pain could be related to thoracic/high lumbar vertebral disc pathology. Also, the patient has had a history of zoster on the left side (a few dermatomes cephalad of current pain). Since the patient does not have a current spinal orthopedic surgeon, referral information for given to her. *DC/Admit/Observation/Transfer Diagnosis at time of Disposition: Left flank pain - Discharge Dispostion Disposition: HOME Condition at time of disposition: Stable - Referrals Referrals: Yaron Umanzor MD [Staff Physician] - 1 week - Patient Instructions Printed Discharge Instructions: DI for Flank Pain Additional Instructions: Continue to drink plenty of water Ibuprofen/naproxen/acetaminophen as needed for pain Follow-up with your primary doctor on October 11 as scheduled Follow-up with spine orthopedist () within 7-10 days Return to ER or see your primary doctor if you see a rash in the area of pain Return to ER if you have severe pain/vomiting/fever - Post Discharge Activity
[2017-10-05] MEDS ORDERED: KETOROLAC TROMETHAMINE 30 MG/1 ML VIAL IVPUSH ONE (20:49)
[2017-10-05] MEDS ORDERED: KETOROLAC TROMETHAMINE 30 MG/1 ML VIAL ONE (20:50)
[2017-10-05 20:54] LABS: EPI CELLS FEW /HPF; URINE RBC 0-3 /hpf (0-3); URINE WBC 0-3 (0-5)
[2017-10-05 20:55] LABS: URINE BACTERIA 1+ /hpf (NEGATIVE)
== END 2017-10-05 21:28 | disposition home or self-care (01) ==
LOC: FER 15:21
PROC: 3E033NZ Introduction of Analgesics, Hypnotics, Sedatives into Peripheral Vein, Percutaneous Approach (ICD-10-PCS; principal; 2017-10-05)
PROC: 3E0333Z Introduction of Anti-inflammatory into Peripheral Vein, Percutaneous Approach (ICD-10-PCS; 2017-10-05)
PROC: 3E033GC Introduction of Other Therapeutic Substance into Peripheral Vein, Percutaneous Approach (ICD-10-PCS; 2017-10-05)
PROC: 3E0337Z Introduction of Electrolytic and Water Balance Substance into Peripheral Vein, Percutaneous Approach (ICD-10-PCS; 2017-10-05)
DX: R10.32 Left lower quadrant pain (principal)
CPT/HCPCS: 36415; 74176; 80053; 81003; 81015; 83690; 85025; 87086; 99283-25; J0131; J7030

== ENCOUNTER 2018-03-03 11:55 | Emergency (ER) | payer BC, OTHER ==
[2018-03-03 12:12] VITALS: BP 158/79; PULSE 55; TEMP 97.7; BMI 30.4
--- NOTE | 2018-03-03 12:20 | PDOC ---
Attending Attestation - Resident Resident Name: Anatoliy Sam - HPI HPI: 03/03/18 12:45 PT presents to the ED requesting refill of oxycodone prescription that she has been taking for many years for her chronic pain. Pt denies new complaints. States that she was prescribed oxycodone for 27 years and that her PMD retired and left her with no medical care. She presented to the ED in January and was given a prescription for opiates and referral to pain management. Patient and her daughter state that they have seen pain management, and that the pain management physician did drug testing and told her to return on Tuesday to get prescription for oxycodone. Daughter is insisting that the patient cannot last until Tuesday. Patient is not having nausea, vomiting, diarrhea or other symptoms of withdrawal at this time. 03/03/18 12:47 - Physicial Exam PE: 03/03/18 13:45 Agree with resident exam. Patient is alert and in no acute distress. She is ambulatory in the Ed with normal gait. - Medical Decision Making 03/03/18 13:45 Pt presents to the ED requesting refill of her chronic opiate prescription. PAtient has already received one brief opiate prescription from the ED in january. I have explained to the patient at length that it is against recommendations of the CDC and ACEP to refill chronic opiate prescriptions in the ED, and that doing so puts patients at risk for overdose and addition. The patient had been recieving as many as 240 pills of 10 mg oxycodone per month from her previous primary care physician. The patients daughter is insistent that the ED "take responsibility" for weaning the patient off opiates, although I have explained to her why this cannot be done by the ER staff. The daughter is concerned that the patient will withdraw from opiates, although the patient has no current signs or symptoms consistent with withdrawal. I have offered her a single dose of her medication in the ED, as well as alternative treatments for pain, such as a lidocaine patch, which they also decline. Patient was advised to continue her non opiate pain regimen and to follow up with her pain management doctor on Tuesday. She and her daughter understand that the patient can return to the ED if she begins to experience symptoms of withdrawal.
[2018-03-03] MEDS ORDERED: oxyCODONE HCL 5 MG TABLET PO ONE ×2 (13:33→13:35)
--- NOTE | 2018-03-03 13:40 | PDOC ---
History of Present Illness - General Chief Complaint: Pain Stated Complaint: NECK, BACK PAIN, PRESCRIPTION REFILL Time Seen by Provider: 03/03/18 11:58 History Source: Patient, Family (daughter) - History of Present Illness Initial Comments: 03/03/18 13:35 67 yo female PMH diabetes, hypertension, hyperlipidemia and multiple herniated discs presents to the ED with her daughter for pain medication. Patient states her PCP who prescribes her pain medication stopped practicing and there was no new Physician to take over the practice. Daughter states she went to the ED recently and received pain medications and a referral to a pain specialist. The pain specialist was seen 4 days ago and started the process for a pain contract but did not order any medications and the follow up appointment is 4 days from now. The pain is described as the same chronic pain she has been dealing with for years and is requesting medication for the next 4 days. Past History - Past Medical History Allergies/Adverse Reactions: Allergies Allergy/AdvReac Type Severity Reaction Status Date / Time morphine Allergy Rash Verified 03/03/18 11:57 Home Medications: Ambulatory Orders Amlodipine Besylate/Benazepril [Lotrel 5-10 mg Capsule] 1 each PO DAILY Butalb/Acetaminophen/Caffeine [Bnmgaa-Apjapkwu-Wvny 50-325-40] 1 each PO Q4H Clobetasol Propionate/Emoll [Clobetasol Emollient 0.05% Crm] 15 gm TP BID Cyclosporine [Restasis] 1 each OP BID 03/03/18 Dapagliflozin/Metformin HCl [Xigduo Xr 5 mg-1,000 mg Tablet] 1 each PO DAILY Erythromycin 0.5% Eye Ointment [Erythromycin 0.5% Eye Ointment -] 1 applic OU QID 03/03/18 Fenofibrate Nanocrystallized [Fenofibrate] 145 mg PO DAILY 03/03/18 Metaxalone [Skelaxin] 800 mg PO TID 03/03/18 Metoprolol Succinate [Toprol Xl] 25 mg PO DAILY 03/03/18 Oxycodone HCl 10 mg PO Q6H 03/03/18 Asthma: Yes COPD: No Diabetes: Yes Disorders: Yes (OVARIAN CYSTS,UTI) HTN: Yes Hypercholesterolemia: Yes Other medical history: arthritis (spine, knees), disk herniation (neck, back) - Surgical History Cholecystectomy: Yes - Reproductive History Polycystic Ovaries: Yes - Suicide/Smoking/Psychosocial Hx Smoking History: Never smoked Have you smoked in the past 12 months: No If you are a former smoker, when did you quit?: 5 Information on smoking cessation initiated: No Hx Alcohol Use: No Drug/Substance Use Hx: No Substance Use Type: None Review of Systems - Review of Systems Constitutional: No: Chills, Fever, Weakness Respiratory: No: Shortness of Breath Cardiac (ROS): No: Chest Pain ABD/GI: No: Constipated, Diarrhea, Nausea, Vomiting : No: Burning, Dysuria Musculoskeletal: Yes: Back Pain (chronic). No: Muscle Weakness Neurological: Yes: Tingling. No: Headache, Weakness *Physical Exam - Vital Signs Last Vital Signs Temp Pulse Resp BP Pulse Ox 97.7 F 55 L 18 158/79 98 03/03/18 11:55 03/03/18 11:55 03/03/18 11:55 03/03/18 11:55 03/03/18 11:55 - Physical Exam General Appearance: Yes: Nourished, Appropriately Dressed. No: Apparent Distress HEENT: positive: EOMI Respiratory/Chest: positive: Lungs Clear, Normal Breath Sounds. negative: Accessory Muscle Use Cardiovascular: positive: Regular Rhythm. negative: Edema Vascular Pulses: Dorsalis-Pedis (R): 3+, Doralis-Pedis (L): 3+ Gastrointestinal/Abdominal: positive: Soft. negative: Pulsatile Mass, Guarding Extremity: positive: Normal Inspection Neurologic: positive: Fully Oriented, Alert, Motor Strength 5/5 Medical Decision Making - Medical Decision Making 03/20/18 03:01 67 yo female PMH diabetes, hypertension, hyperlipidemia and multiple herniated discs presents to the ED with her daughter for pain medication. Patient states her PCP who prescribes her pain medication stopped practicing and there was no new Physician to take over the practice. Daughter states she went to the ED recently and received pain medications and a referral to a pain specialist. The pain specialist was seen 4 days ago and started the process for a pain contract but did not order any medications and the follow up appointment is 4 days from now. The pain is described as the same chronic pain she has been dealing with for years and is requesting medication for the next 4 days. Patients daughter became aggressive when told her mother should follow up with the Pain Specialist appointment rather than receiving opiate medications today. Nurse Dandy Tender called to help with situation as requested by patient. 1 dose of pain medication ordered while in the ED. No signs of withdraw on examination Discharge patient home with follow up in Pain Management *DC/Admit/Observation/Transfer Diagnosis at time of Disposition: Pain - Discharge Dispostion Disposition: HOME Condition at time of disposition: Fair Decision to Admit order: No - Referrals Referrals: Jorge Salas MD [Staff Physician] - Jeffrey Ramirez [Other] - Patient Instructions Additional Instructions: Please follow up with your Pain Doctor within the next 48 hours. Return to the Emergency Room if you have one sided weakness, urinary or fecal incontinence. - Post Discharge Activity
== END 2018-03-03 14:35 | disposition home or self-care (01) ==
LOC: FER 11:55
DX: R52 Pain, unspecified (principal); Z87.891 Personal history of nicotine dependence; E11.9 Type 2 diabetes mellitus without complications; I10 Essential (primary) hypertension
CPT/HCPCS: 99283-25

== ENCOUNTER 2018-05-06 17:38 | Inpatient (IN) | payer BC, OTHER ==
--- NOTE | 2018-05-06 17:44 | PDOC ---
History of Present Illness - General History Source: Patient, Family Exam Limitations: No Limitations - History of Present Illness Initial Comments: 05/06/18 18:03 The patient is a 67 year old female, with a significant past medical history of diabetes, hypertension, hyperlipidemia, multiple herniated discs, chronic pain, asthma, and ovarian cysts who presents to the emergency department with, nausea , vomiting, and epigastric pain. As per patient and her daughter, she woke up this morning and made a salad this morning using spring mix (which she watched) and vegetables for breakfast. Shortly after, she began experiencing abdominal cramping and nausea with multiple episodes of nonbloody emesis, prompting her visit to the ER today. Her last bowel movement was yesterday (05/05). She denies recent fevers, chills, headache or dizziness.She denies recent dysuria, frequency, urgency or hematuria. She denies recent chest pain or shortness of breath. Allergies: Morphine. Past surgical history: Cholecystectomy. Laminectomy. <Theresa Wagner - Last Filed: 05/06/18 18:03> <Danni Flanagan - Last Filed: 05/07/18 07:24> - General Chief Complaint: Nausea/Vomiting Stated Complaint: VOMITING Time Seen by Provider: 05/06/18 17:42 Past History <Theresa Wagner - Last Filed: 05/06/18 18:03> - Past Medical History Asthma: Yes COPD: No Diabetes: Yes Disorders: Yes (OVARIAN CYSTS,UTI) HTN: Yes Hypercholesterolemia: Yes - Surgical History Cholecystectomy: Yes - Reproductive History Polycystic Ovaries: Yes - Suicide/Smoking/Psychosocial Hx Smoking History: Never smoked Have you smoked in the past 12 months: No If you are a former smoker, when did you quit?: 5 Hx Alcohol Use: No Drug/Substance Use Hx: No Substance Use Type: None <Danni Flanagan - Last Filed: 05/07/18 07:24> - Past Medical History Allergies/Adverse Reactions: Allergies Allergy/AdvReac Type Severity Reaction Status Date / Time morphine Allergy Rash Verified 05/06/18 18:44 Home Medications: Ambulatory Orders Amlodipine Besylate/Benazepril [Lotrel 5-10 mg Capsule] 1 each PO DAILY Butalb/Acetaminophen/Caffeine [Gqlvot-Bzhwnoqu-Qavx 50-325-40] 1 each PO Q4H PRN 03/03/18 Clobetasol Propionate/Emoll [Clobetasol Emollient 0.05% Crm] 15 gm TP BID PRN Cyclosporine [Restasis] 1 each OP BID 03/03/18 Dapagliflozin/Metformin HCl [Xigduo Xr 5 mg-1,000 mg Tablet] 1 each PO DAILY Fenofibrate Nanocrystallized [Fenofibrate] 145 mg PO DAILY 03/03/18 Metaxalone [Skelaxin] 800 mg PO TID PRN 03/03/18 Metoprolol Succinate [Toprol Xl] 25 mg PO DAILY 03/03/18 Oxycodone HCl 10 mg PO TID 03/03/18 Review of Systems - Review of Systems Able to Perform ROS?: Yes Comments:: 05/06/18 18:03 GENERAL/CONSTITUTIONAL: No fever or chills. No weakness. HEAD, EYES, EARS, NOSE AND THROAT: No change in vision. No ear pain or discharge. No sore throat. CARDIOVASCULAR: No chest pain or shortness of breath. RESPIRATORY: No cough, wheezing, or hemoptysis. +GASTROINTESTINAL: Nausea. Vomiting. Abdominal cramping. GENITOURINARY: No dysuria, frequency, or change in urination. MUSCULOSKELETAL: No joint or muscle swelling or pain. No neck or back pain. SKIN: No rash NEUROLOGIC: No headache, vertigo, loss of consciousness, or change in strength/ sensation. ENDOCRINE: No increased thirst. No abnormal weight change. HEMATOLOGIC/LYMPHATIC: No anemia, easy bleeding, or history of blood clots. ALLERGIC/IMMUNOLOGIC: No hives or skin allergy. All Other Systems: Reviewed and Negative <Theresa Wagner - Last Filed: 05/06/18 18:03> *Physical Exam - Vital Signs Last Vital Signs Temp Pulse Resp BP Pulse Ox 97.9 F 72 18 159/100 98 05/06/18 17:40 05/06/18 17:40 05/06/18 17:40 05/06/18 17:40 05/06/18 17:40 <Theresa Wagner - Last Filed: 05/06/18 18:03> - Physical Exam Comments: GENERAL: Awake, alert, and fully oriented. Actively vomiting on arrival. Appears ill. HEAD: No signs of trauma EYES: PERRLA, EOMI, sclera anicteric, conjunctiva clear ENT: Auricles normal inspection, hearing grossly normal, nares patent, oropharynx clear without exudates. Dry mucosa NECK: Normal ROM, supple, no lymphadenopathy, JVD, or masses LUNGS: Breath sounds equal, clear to auscultation bilaterally. No wheezes, and no crackles HEART: Regular rate and rhythm, normal S1 and S2, no murmurs, rubs or gallops ABDOMEN: Soft, diffusely tender, hyperactive bowel sounds. +Guarding, no rebound. +Palpable midline hernia. EXTREMITIES: Normal range of motion, no edema. No clubbing or cyanosis. No cords, erythema, or tenderness NEUROLOGICAL: Cranial nerves II through XII grossly intact. Normal speech, normal gait SKIN: Warm, Dry, normal turgor, no rashes or lesions noted. <Danni Flanagan - Last Filed: 05/07/18 07:24> ED Treatment Course - LABORATORY CBC & Chemistry Diagram: 05/07/18 03:30 05/07/18 02:00 <Danni Flanagan - Last Filed: 05/07/18 07:24> Medical Decision Making - Medical Decision Making 05/06/18 17:56 Pt with prior abd surgery, large hernia presenting with N/V, dec stool output since yesterday. Will plan for CT. GI cocktail for symptoms. 05/06/18 19:02 Pt signed out to Dr. Berry at shift change. Labs have returned, will obtain CT with IV contrast to evaluate for SBO vs intraabdominal infection. <Danni Flanagan - Last Filed: 05/07/18 07:24> *DC/Admit/Observation/Transfer - Attestations Scribe Attestion: 05/06/18 18:04 Documentation prepared by Theresa Wagner, acting as medical cost consultant for Danni Flanagan MD. <Theresa Wagner - Last Filed: 05/06/18 18:03> <Danni Flanagan - Last Filed: 05/07/18 07:24> Diagnosis at time of Disposition: Small bowel obstruction, Elevated troponin - Discharge Dispostion Condition at time of disposition: Guarded
[2018-05-06] MEDS ORDERED: ONDANSETRON 4 MG/2 ML VIAL IVPUSH ONE ×2 (17:45→21:11)
[2018-05-06] MEDS ORDERED: SODIUM CHLORIDE 1,000 ML IV STA (17:45)
[2018-05-06] MEDS ORDERED: ONDANSETRON 4 MG/2 ML VIAL ONE ×2 (17:46→21:04)
[2018-05-06] MEDS ORDERED: ACETAMINOPHEN 1000 MG/100 ML VIAL (NON FORMULARY) IVPB ONE (17:56)
[2018-05-06] MEDS ORDERED: FAMOTIDINE 20 MG/50 ML IVPB 20 MG/50 ML MG IVPB ONE ×2 (17:56→18:26)
[2018-05-06] MEDS ORDERED: ACETAMINOPHEN INJECTION 100 ML IVPB ONE (18:26)
[2018-05-06 18:50] LABS: BASO % 1.7 % (0-2.0); EOS % 1.2 % (0-4.5); HEMATOCRIT 42.5 % (32.4-45.2); LYMPH % 19.4 % (8-40); MCH 30.1 pg (25.7-33.7); MEAN CELL VOLUME 91.2 fl (80-96); MEAN PLT VOLUME 8.4 fl (7.5-11.1); MONO % 4.1 % (3.8-10.2); NEUT % 73.6 % (42.8-82.8); PLATELET COUNT 398 K/MM3 (134-434); RBC 4.66 M/mm3 (3.60-5.2); RDW 13.7 % (11.6-15.6); WHITE BLOOD COUNT 14.9 K/mm3 (4.0-10.8)
[2018-05-06 18:54] LABS: ALBUMIN 3.7 g/dl (3.5-5.0); ALK PHOS 52 U/L (32-92); ANION GAP 9 MMOL/L (8-16); BILIRUBIN,TOTAL 0.4 mg/dl (0.2-1.0); BLOOD UREA NITROGEN 20 mg/dl (7-18); CALCIUM 9.8 mg/dl (8.4-10.2); CHLORIDE 100 mmol/L (98-107); CO2 26 mmol/L (22-28); CREATININE < 0.6 mg/dl (0.6-1.3); GLUCOSE,RANDOM 122 mg/dl (74-106); POTASSIUM 3.7 mmol/L (3.5-5.1); SGOT/AST 18 U/L (10-42); SGPT/ALT 19 U/L (10-40); SODIUM 135 mmol/L (136-145); TOT PROT 7.4 g/dl (6.4-8.3)
--- NOTE | 2018-05-06 19:12 | PDOC ---
*Physical Exam - Vital Signs Last Vital Signs Temp Pulse Resp BP Pulse Ox 97.9 F 72 18 159/100 98 05/06/18 17:40 05/06/18 17:40 05/06/18 17:40 05/06/18 17:40 05/06/18 17:40 ED Treatment Course - LABORATORY CBC & Chemistry Diagram: 05/06/18 18:05 05/06/18 18:05 - ADDITIONAL ORDERS Additional order review: Laboratory Results 05/06/18 05/06/18 18:05 18:05 Sodium 135 L Potassium 3.7 Chloride 100 Carbon Dioxide 26 Anion Gap 9 BUN 20 H Creatinine < 0.6 L Creat Clearance w eGFR > 60 Random Glucose 122 H D Calcium 9.8 Total Bilirubin 0.4 AST 18 D ALT 19 D Alkaline Phosphatase 52 Creatine Kinase 50 Troponin I 0.12 H Total Protein 7.4 Albumin 3.7 05/06/18 18:05 RBC 4.66 MCV 91.2 MCHC 33.0 RDW 13.7 MPV 8.4 Neutrophils % 73.6 Lymphocytes % 19.4 Monocytes % 4.1 Eosinophils % 1.2 Basophils % 1.7 - Medications Given in the ED: ED Medications Discontinued Medications Generic Name Dose Route Start Last Admin Trade Name Freq PRN Reason Stop Dose Admin Acetaminophen 1,000 mg 05/06/18 17:56 05/06/18 18:25 Ofirmev Injection - IVPB 05/06/18 17:57 1,000 mg ONCE ONE Administration Sodium Chloride 1,000 mls @ 1,000 mls/hr 05/06/18 17:45 05/06/18 18:00 Normal Saline - IV 05/06/18 18:44 1,000 mls/hr ASDIR STA Administration Famotidine/Sodium Chloride 20 mg in 50 mls @ 100 mls/hr 05/06/18 17:56 18:37 Pepcid 20 Mg Premixed Ivpb - IVPB 05/06/18 18:25 100 mls/hr ONCE ONE Administration Ondansetron HCl 4 mg 05/06/18 17:45 05/06/18 18:05 Zofran Injection IVPUSH 05/06/18 17:46 4 mg ONCE ONE Administration Medical Decision Making - Medical Decision Making 05/06/18 23:17 Care of this patient received from Dr. Flanagan. This 67-year-old woman with a history of HTN/DM presents with nausea and vomiting after eating a salad for breakfast earlier today. Of note, workup reveals mild elevation of troponin[0.12 at 6 PM/0.11 at 10 PM] 12-lead electrocardiogram reveals sinus bradycardia at 55 bpm there is left axis deviation but no evidence of acute ST or T-wave abnormalities. Abdominal/pelvic CT interpreted by Imaging station superintendent: mildly dilated small bowel in the left upper abdomen extending from left upper pelvis with moderate adjacent mesenteric edema compatible with small bowel obstruction. Transition was likely in the left upper pelvis posteriorly. No evidence for diverticulitis /appendicitis/free air 16 [place] nasogastric tube placed without difficulty. Approximately 200 mL of bilious fluid drained. Clinical presentation of small bowel obstruction in a patient with past history of laparotomy (cholecystectomy) and recent high fiber diet; troponin is mildly elevated but stable over the last 4 hours Patient states that she has not been seen by a business applications analyst in the past. She very recently developed intermittent palpitations but has not yet been able to start evaluation of this new problem. 05/07/18 00:37 Case discussed with from [facility]. Patient should be kept nothing by mouth overnight with maintenance fluids. INR and type& cross should be sent; flat and upright x-rays of the abdomen as well as routine blood work should be repeated in the morning. Case also discussed with of [facility] service: Because of the slight troponin elevation and pt's multiple risk factors for coronary artery disease, the patient will be admitted to [facility], telemetry floor. There, access to stress testing is possible, as well as presence of advanced capabilities if patient has any deterioration in cardiac status. Plan discussed with the patient and her daughter who understanding and agree to the plan. 05/07/18 00:43 05/07/18 01:21 EST The patient's case discussed with Dr. Hernandez of [facility] cardiology group, meals on wheels driver this weekend. Because of bed limitations at [facility], the patient will not be able to be admitted there. Dr. Hernandez aware of this and has no objections. 05/07/18 01:36 EST Portable chest x-ray performed: Interpreted by me-cardiomegaly present. Left diaphragmatic angle not clearly seen. Otherwise, no evidence of acute infiltrate or masses. *DC/Admit/Observation/Transfer Diagnosis at time of Disposition: Small bowel obstruction, Elevated troponin - Discharge Dispostion Condition at time of disposition: Guarded Decision to Admit order: Yes - Referrals - Patient Instructions - Post Discharge Activity
[2018-05-06 19:40] LABS: LIPASE 195 U/L (73-393)
[2018-05-06 19:57] LABS: URINE APPEARANCE Clear; URINE BILIRUBIN Negative (NEGATIVE); URINE COLOR Yellow; URINE GLUCOSE (UA) Negative (NEGATIVE); URINE KETONE Negative (NEGATIVE); URINE LEUK ESTERASE TRACE (NEGATIVE); URINE NITRITE Negative (NEGATIVE); URINE PROTEIN Negative (NEGATIVE); URINE UROBILINOGEN 0.2 (0.2-1.0)
[2018-05-06 20:20] LABS: EPI CELLS FEW /HPF; URINE AMORPHOUS SEDIMENT 2+; URINE RBC 0-2 /hpf (0-3)
[2018-05-06] MEDS ORDERED: KETOROLAC TROMETHAMINE 15 MG/ML VIAL IVPUSH ONE (22:29)
[2018-05-06] MEDS ORDERED: KETOROLAC TROMETHAMINE 15 MG/ML VIAL ONE (22:30)
[2018-05-07] MEDS ORDERED: ONDANSETRON 4 MG/2 ML VIAL IVPUSH PRN (00:39)
[2018-05-07] MEDS: LACTATED RINGERS SOLUTION 1,000 ML/1,000 ML INFUS.BAG IV SCH ×2 (02:00→17:52)
[2018-05-07 02:54] VITALS: BMI 29.9
[2018-05-07 02:58] LABS: INR 0.98 (0.83-1.09); PROTHROMBIN TIME (PATIENT) 11.6 SEC (9.7-13.0)
[2018-05-07] MEDS ORDERED: ACETAMINOPHEN INJECTION 100 ML IVPB ONE ×2 (02:58→12:44)
[2018-05-07 03:31] LABS: ALBUMIN 3.2 g/dl (3.4-5.0); ALK PHOS 59 U/L (45-117); ANION GAP 7 MMOL/L (8-16); BILIRUBIN,TOTAL 0.4 mg/dL (0.2-1); BLOOD UREA NITROGEN 18 mg/dL (7-18); CALCIUM 8.7 mg/dL (8.5-10.1); CHLORIDE 103 mmol/L (98-107); CO2 28 mmol/L (21-32); CREATININE 0.5 mg/dL (0.55-1.3); GLUCOSE,RANDOM 108 mg/dL (74-106); MAGNESIUM 2.3 mg/dL (1.8-2.4); POTASSIUM 4.3 mmol/L (3.5-5.1); SGOT/AST 17 U/L (15-37); SGPT/ALT 22 U/L (13-61); SODIUM 139 mmol/L (136-145)
[2018-05-07 04:15] LABS: BASO % 0.7 % (0-2.0); EOS % 1.4 % (0-4.5); HEMATOCRIT 37.8 % (32.4-45.2); HEMOGLOBIN 13.1 GM/dL (10.7-15.3); LYMPH % 17.7 % (8-40); MCH 31.1 pg (25.7-33.7); MCHC 34.7 g/dl (32.0-36.0); MEAN CELL VOLUME 89.4 fl (80-96); MEAN PLT VOLUME 9.3 fl (7.5-11.1); MONO % 6.7 % (3.8-10.2); NEUT % 73.5 % (42.8-82.8); PLATELET COUNT 424 K/MM3 (134-434); RBC 4.22 M/mm3 (3.60-5.2); RDW 14.4 % (11.6-15.6); WHITE BLOOD COUNT 15.1 K/mm3 (4.0-10.0)
--- NOTE | 2018-05-07 05:29 | HP ---
CHIEF COMPLAINT: PCP: Not documented; her MD recently retired so she had to change "all of her doctors" HISTORY OF PRESENT ILLNESS: Patient is a very pleasant 67 y/o female. She has a PMH of NIDDM, hypertension , hyperlipidemia, multiple herniated discs, chronic pain (follows with pain clinic), asthma, and ovarian cysts who presents to the emergency department with , nausea, vomiting, and epigastric pain that is concentrated to the left side. She has had pain like this prior "years ago" when she had a SBO and it was managed conservatively at [facility]. She had 1.5 days of nausea and vomitting; she started with dry heaves at home and this caused her a great amount of neck discomfort that radiated down her neck to her chest causing what she percieves as muscle pain causing chest tightness, but more on that later. She has recently started a high fiber diet; no BM yet; did pass gas today but hasn't since on floor. Pain is constant but intermittently gets more intense. In terms of the afortementioned chest tightness, the RN corporate physical security supervisor and myself spoke with her at great length regarding this. It didn't start until after she started her dry heaving; it persisted with a musculoskeletal type soreness that spread throughout her chest and pre-existing muscle spasms 2/2 slipped discs were felt in her neck radiating through the SCM to the posterior areas. Seems quite atypical for cardiac chest pain. She has been told she needs a acquisition manager but has never seen one. We have no prior record of stress tests, caths, etc. and the patient denies any cardiac history. She has multiple risk factors for coronary artery disease. She will be monitored on the floor on the medicine service with surgical and cardiology consultation. Further questioning about her cardiac sx show that she has had intermittent palpations for about a month that sometimes occur with activity, but she hasn't had this worked up yet. No syncope, etc. etc. *Patient was initially going to be admitted to [facility] due to the elevated troponin, but we spoke to cardiology and the patient at length. Given the relatively flat troponin that trended down alongside the fact that her primary issue is a SBO that easily could have placed demand on the heart, we spoke with cardiology and they are OK with her staying at and will see her as a consult. Surgery was also consulted by the ER. Primary service truly appreciates the aid of the consulting services in the ongoing care of this patient. ER course was notable for: (1) Pain and nausea control (2) IVF (3) NGT inserted and ~200 bilious fluid out Recent Travel: No pertinent PAST MEDICAL HISTORY: NIDDM, HTN, HLD, Chronic pain, Herniated discs, prior remote SBO managed conservatively, Migraines PAST SURGICAL HISTORY: Cholecystectomy Social History: Smoking: Denies Alcohol: Denies Drugs: Denies Family History: Asked and noncontributory Allergies: morphine Allergy (Verified 05/06/18 18:44) Rash HOME MEDICATIONS: Home Medications Medication Instructions Recorded Amlodipine Besylate/Benazepril 1 each PO DAILY 03/03/18 [Lotrel 5-10 mg Capsule] Butalb/Acetaminophen/Caffeine 1 each PO Q4H PRN 03/03/18 [Oabnti-Ehzczjzb-Prxe 50-325-40] Clobetasol Propionate/Emoll 15 gm TP BID PRN 03/03/18 [Clobetasol Emollient 0.05% Crm] Cyclosporine [Restasis] 1 each OP BID 03/03/18 Dapagliflozin/Metformin HCl 1 each PO DAILY 03/03/18 [Xigduo Xr 5 mg-1,000 mg Tablet] Fenofibrate Nanocrystallized 145 mg PO DAILY 03/03/18 [Fenofibrate] Metaxalone [Skelaxin] 800 mg PO TID PRN 03/03/18 Metoprolol Succinate [Toprol Xl] 25 mg PO DAILY 03/03/18 Oxycodone HCl 10 mg PO TID 03/03/18 REVIEW OF SYSTEMS 10 sys ROS done and was negative aside from the HPI PHYSICAL EXAMINATION Vital Signs - 24 hr 05/06/18 05/06/18 05/06/18 17:40 19:25 21:57 Temperature 97.9 F 97.9 F 98.4 F Pulse Rate 72 Pulse Rate [ 55 L 54 L Apical] Respiratory 18 16 16 Rate Blood Pressure 159/100 Blood Pressure 120/58 L 112/55 L [Right Arm] O2 Sat by Pulse 98 95 96 Oximetry (%) 05/07/18 05/07/18 05/07/18 01:44 EDT 02:53 02:54 Temperature 98.3 F 98.3 F Pulse Rate 69 69 Pulse Rate [ 74 Apical] Respiratory 16 16 Rate Blood Pressure 136/65 136/65 Blood Pressure 109/49 L [Right Arm] O2 Sat by Pulse 98 96 Oximetry (%) GENERAL: Awake, alert, and fully oriented, in no acute distress. HEAD: Normal with no signs of trauma. NGT inserted set to LIWS EYES: Pupils equal, round and reactive to light, extraocular movements intact, sclera anicteric NECK: Normal range of motion, supple without lymphadenopathy, JVD, or masses. Painful to palpate muscles, especially posterolaterally LUNGS: Breath sounds equal, clear to auscultation bilaterally. No wheezes, and no crackles. No accessory muscle use. HEART: Regular rate and rhythm, normal S1 and S2 without murmur, rub or gallop. ABDOMEN: Soft, tender specifically in left side upper areas extending throughout the epigastrium to the lower left abd, mildly distended, reduced bowel sounds, no guarding, no rebound MUSCULOSKELETAL: Normal range of motion at all joints. No bony deformities or tenderness. No CVA tenderness. UPPER EXTREMITIES: 2+ pulses, warm, well-perfused. No cyanosis. No clubbing. No peripheral edema. LOWER EXTREMITIES: 2+ pulses, warm, well-perfused. No calf tenderness. No peripheral edema. NEUROLOGICAL: Cranial nerves II-XII intact. Normal speech. Normal gait. PSYCHIATRIC: Cooperative. Good eye contact. Appropriate mood and affect. SKIN: Warm, dry, normal turgor, no rashes or lesions noted, normal capillary refill. Laboratory Results - last 24 hr 05/06/18 05/06/18 05/06/18 18:05 18:05 18:05 WBC 14.9 H RBC 4.66 Hgb 14.0 Hct 42.5 MCV 91.2 MCH 30.1 MCHC 33.0 RDW 13.7 Plt Count 398 MPV 8.4 Absolute Neuts (auto) 10.9 Neutrophils % 73.6 Lymphocytes % 19.4 Monocytes % 4.1 Eosinophils % 1.2 Basophils % 1.7 Nucleated RBC % PT with INR INR Sodium 135 L Potassium 3.7 Chloride 100 Carbon Dioxide 26 Anion Gap 9 BUN 20 H Creatinine < 0.6 L Creat Clearance w eGFR > 60 Random Glucose 122 H D Calcium 9.8 Magnesium Total Bilirubin 0.4 AST 18 D ALT 19 D Alkaline Phosphatase 52 Creatine Kinase 50 Troponin I 0.12 H Total Protein 7.4 Albumin 3.7 Triglycerides Cholesterol Total LDL Cholesterol HDL Cholesterol Lipase 195 TSH Urine Color Urine Appearance Urine pH Ur Specific Marion Urine Protein Urine Glucose (UA) Urine Ketones Urine Blood Urine Nitrite Urine Bilirubin Urine Urobilinogen Ur Leukocyte Esterase Urine RBC Urine WBC Ur Epithelial Cells Amorphous Sediment 05/06/18 05/06/18 05/07/18 19:53 21:46 00:35 WBC RBC Hgb Hct MCV MCH MCHC RDW Plt Count MPV Absolute Neuts (auto) Neutrophils % Lymphocytes % Monocytes % Eosinophils % Basophils % Nucleated RBC % PT with INR 11.60 INR 0.98 Sodium Potassium Chloride Carbon Dioxide Anion Gap BUN Creatinine Creat Clearance w eGFR Random Glucose Calcium Magnesium Total Bilirubin AST ALT Alkaline Phosphatase Creatine Kinase Troponin I 0.11 H Total Protein Albumin Triglycerides Cholesterol Total LDL Cholesterol HDL Cholesterol Lipase TSH Urine Color Yellow Urine Appearance Clear Urine pH 7.0 Ur Specific Marion 1.015 Urine Protein Negative Urine Glucose (UA) Negative Urine Ketones Negative Urine Blood Negative Urine Nitrite Negative Urine Bilirubin Negative Urine Urobilinogen 0.2 Ur Leukocyte Esterase Trace H Urine RBC 0-2 Urine WBC 2-5 Ur Epithelial Cells Few Amorphous Sediment 2+ 05/07/18 05/07/18 05/07/18 00:35 02:00 02:00 WBC RBC Hgb Hct MCV MCH MCHC RDW Plt Count MPV Absolute Neuts (auto) Neutrophils % Lymphocytes % Monocytes % Eosinophils % Basophils % Nucleated RBC % PT with INR INR Sodium 139 Potassium 4.3 Chloride 103 Carbon Dioxide 28 Anion Gap 7 L BUN 18 Creatinine 0.5 L Creat Clearance w eGFR > 60 Random Glucose 108 H Calcium 8.7 Magnesium 2.3 Total Bilirubin 0.4 AST 17 ALT 22 Alkaline Phosphatase 59 Creatine Kinase 53 Troponin I < 0.02 Total Protein 7.0 Albumin 3.2 L Triglycerides 90 Cholesterol 148 Total LDL Cholesterol 80 HDL Cholesterol 52 Lipase TSH 0.64 Urine Color Urine Appearance Urine pH Ur Specific Marion Urine Protein Urine Glucose (UA) Urine Ketones Urine Blood Urine Nitrite Urine Bilirubin Urine Urobilinogen Ur Leukocyte Esterase Urine RBC Urine WBC Ur Epithelial Cells Amorphous Sediment 05/07/18 03:30 WBC 15.1 H RBC 4.22 Hgb 13.1 Hct 37.8 MCV 89.4 MCH 31.1 MCHC 34.7 RDW 14.4 Plt Count 424 MPV 9.3 Absolute Neuts (auto) 11.1 H Neutrophils % 73.5 Lymphocytes % 17.7 Monocytes % 6.7 Eosinophils % 1.4 Basophils % 0.7 Nucleated RBC % 0 PT with INR INR Sodium Potassium Chloride Carbon Dioxide Anion Gap BUN Creatinine Creat Clearance w eGFR Random Glucose Calcium Magnesium Total Bilirubin AST ALT Alkaline Phosphatase Creatine Kinase Troponin I Total Protein Albumin Triglycerides Cholesterol Total LDL Cholesterol HDL Cholesterol Lipase TSH Urine Color Urine Appearance Urine pH Ur Specific Marion Urine Protein Urine Glucose (UA) Urine Ketones Urine Blood Urine Nitrite Urine Bilirubin Urine Urobilinogen Ur Leukocyte Esterase Urine RBC Urine WBC Ur Epithelial Cells Amorphous Sediment Imagin) CT abdomen/pelvis preliminary read (final pending) shows mildly dilated small bowel in the left upper abdomen extending from the left upper pelvis with moderate adjacent mesenteric edema compatable with a SBO with the transition point likely in the left upper pelvis posterior aspect. There was no annotation indicating free air or infection 2) CXR report pending; no acute findings 3) Flat and Standing AXR ordered and are pending this AM ASSESSMENT/PLAN: 1) Small Bowel Obstruction -Patient presents with hx, PE, and imaging consistent with an acute SBO. She is hemodynamically stable and afebrile with a WBC count that can be explained by leukocytosis and no infection present on imaging; will thus hold off on abx and only cover if clinically indicated -Dr. Cade is following; greatly appreciate their presence -NPO; NGT inserted and set to LIWS. Monitor for BM and flatus -IVF, monitor Is and Os. -Sent out type and screen, coags, AM labs; axr (flat and standing) ordered for this AM. -Monitor serial abdominal exams 2) Elevated Troponin -Patient presents with troponin peaking at .12 and trending down now wnl this AM. Her sx are very atypical and almost certainly related to her vomitting. The SBO gives her a reason for demand. However, one must remember that this patient does have multiple risk factors for CAD and thus would benefit from a cardiology consultation. We spoke with extraction operator overnight and they are comfortable with her being monitored on telemetry. Appreciate their input. Will require further workup in the future 3) NIDDM -Not on home insulin; fsg <150. Very low SSI scale as NPO. 4) HTN -Hold PO meds as NPO; reintroduce when clinically approprate. Use IV PRN hydralazine to keep her <160 sbp 5) HLD -Resume PO meds when taking by mouth 6) Chronic Pain -Hold PO meds; will manage IV PRN 7) Slipped Discs -No neuro changes; monitor 8) Migraines -Cannot take PO; manage IV PRN. No acute flare now FULL CODE FENA -LR@100 -Monitor and replace PRN -NPO -As tolerated Consulting services: Surgery, CV Visit type - Emergency Visit Emergency Visit: No - New Patient This patient is new to me today: Yes Date on this admission: 05/07/18 - Critical Care Critical Care patient: No
[2018-05-07] MEDS: HEPARIN NA (PORCINE) 5,000 UNITS/ML 1ML VIAL SQ SCH (07:01)
[2018-05-07] MEDS: INSULIN SLIDING SCALE (NOVOLOG) 1 VIAL SQ SCH ×3 (07:03→21:47)
--- NOTE | 2018-05-07 11:33 | EKG ---
Test Reason : Blood Pressure : / mmHG Vent. Rate : 055 BPM Atrial Rate : 055 BPM P-R Int : 178 ms QRS Dur : 086 ms QT Int : 442 ms P-R-T Axes : 046 -49 015 degrees QTc Int : 422 ms SINUS BRADYCARDIA LEFT AXIS DEVIATION ABNORMAL ECG WHEN COMPARED WITH ECG OF 17-JUL-2017 18:01, INCOMPLETE RIGHT BUNDLE BRANCH BLOCK IS NO LONGER PRESENT Confirmed by REJI PRESSLEY, CHARLI ([id number]) on 05/07/2018 11:32:49 AM Referred By: Irvin GARZA Confirmed By:CHARLI MENDOZA MD
[2018-05-07] MEDS ORDERED: PATIENT'S OWN MEDICATION (NON-FORMULARY) (Clobetasol Propionate/Emoll [Clobetasol Emollien TP PRN ×2 (11:53→20:12)
[2018-05-07] MEDS ORDERED: METOPROLOL TARTRATE 5 MG/5 ML VIAL IVPUSH SCH ×2 (12:15→15:00)
[2018-05-07] MEDS: ACETAMINOPHEN 1000 MG/100 ML VIAL (NON FORMULARY) IVPB PRN ×2 (12:52→18:39)
[2018-05-07] MEDS ORDERED: METOPROLOL TARTRATE 5 MG/5 ML VIAL ONE (12:56)
[2018-05-07] MEDS ORDERED: HYDROmorphone HCL CARPU-JECT 1 MG/1 ML DISP.SYRIN IVPUSH ONE (13:39)
--- NOTE | 2018-05-07 13:44 | OP ---
Operative Note - Note: Operative Date: 05/07/18 Pre-Operative Diagnosis: acute appendicitis Operation: laparoscopic appendectomy Findings: enlarged, inflamed, bulbous retrocecal curled appendix, normal base Post-Operative Diagnosis: Same as Pre-op Surgeon: Yovany Cade Anesthesiologist/CIGARETTE PAPER TESTER: Tamanna Castaneda Anesthesia: General, Local (20ml 0.5% marcaine) Specimens Removed: appendix to pathology Estimated Blood Loss (mls): 5 Drains & Tubes with Location: Ty out at end of case Drains, Volume Out (mls): 100 (UOP) Fluid Volume Replaced (mls): 1,000 (crystalloid) Operative Report Dictated: Yes
[2018-05-07] MEDS ORDERED: HYDROmorphone HCL CARPU-JECT 1 MG/1 ML DISP.SYRIN IVPB SCH ×2 (14:15→22:00)
--- NOTE | 2018-05-07 14:42 | CON.CARD ---
Consult Consult Specialty:: Cardiology Referred by:: Larry Reason for Consultation:: elevated troponin, preop evaluation - History of Present Illness Chief Complaint: abdominal pain History of Present Illness: 67 y/o female with a history of NIDDM, hypertension, hyperlipidemia, multiple herniated discs, chronic pain (follows with pain clinic), asthma, cholecystectomy, ?volvulus? ovarian cysts who was admitted with nausea, vomiting , and epigastric pain found with SBO. ECG with LAD, elevated troponin which normalized. No chest pain, sob, orthopnea, PND or edema. Baseline exercise tolerance is limited by DJD of the spine. - Alcohol/Substance Use Hx Alcohol Use: No - Smoking History Smoking history: Never smoked Have you smoked in the past 12 months: No If you are a former smoker, when did you quit?: 5 Home Medications - Allergies Allergies/Adverse Reactions: Allergies Allergy/AdvReac Type Severity Reaction Status Date / Time morphine Allergy Rash Verified 05/06/18 18:44 - Home Medications Home Medications: Ambulatory Orders Amlodipine Besylate/Benazepril [Lotrel 5-10 mg Capsule] 1 each PO DAILY Butalb/Acetaminophen/Caffeine [Jsndxs-Mevulefs-Hpds 50-325-40] 1 each PO Q4H PRN 03/03/18 Clobetasol Propionate/Emoll [Clobetasol Emollient 0.05% Crm] 15 gm TP BID PRN Cyclosporine [Restasis] 1 each OP BID 03/03/18 Dapagliflozin/Metformin HCl [Xigduo Xr 5 mg-1,000 mg Tablet] 1 each PO DAILY Fenofibrate Nanocrystallized [Fenofibrate] 145 mg PO DAILY 03/03/18 Metaxalone [Skelaxin] 800 mg PO TID PRN 03/03/18 Metoprolol Succinate [Toprol Xl] 25 mg PO DAILY 03/03/18 Oxycodone HCl 10 mg PO TID 03/03/18 Vital Signs: Vital Signs Temperature 98.4 F 05/07/18 10:00 Pulse Rate 80 05/07/18 12:57 Respiratory Rate 20 05/07/18 10:00 Blood Pressure 139/72 05/07/18 12:57 O2 Sat by Pulse Oximetry (%) 95 05/07/18 07:03 Constitutional: Yes: No Distress, Calm, Obese Eyes: Yes: Conjunctiva Clear, EOM Intact HENT: Yes: Atraumatic, Normocephalic Neck: Yes: Supple, Trachea Midline Respiratory: Yes: CTA Bilaterally Gastrointestinal: Yes: Distention, Hypoactive Bowel Sounds, Tenderness, Epigastrium Renal/: Yes: WNL Cardiovascular: Yes: Regular Rate and Rhythm JVD: No Carotid Bruit: No PMI: Non-Displaced Heart Sounds: Yes: S1, S2 Edema: No Peripheral Pulses WNL: Yes - Other Data Labs, Other Data: CBC, BMP 05/07/18 03:30 05/07/18 02:00 INR, PTT INR 0.98 (0.83-1.09) 05/07/18 00:35 Troponin, BNP 05/06/18 05/06/18 05/07/18 18:05 21:46 02:00 Troponin I 0.12 H 0.11 H < 0.02 Troponin, BNP 05/06/18 05/06/18 05/07/18 18:05 21:46 02:00 Troponin I 0.12 H 0.11 H < 0.02 Imaging - Results Chest X-ray: Report Reviewed X-ray: Report Reviewed EKG: Report Reviewed (nsr lad) Assessment/Plan 67 y/o female with a history of NIDDM, hypertension, hyperlipidemia, multiple herniated discs, chronic pain (follows with pain clinic), asthma, cholecystectomy, ?volvulus? ovarian cysts who was admitted with nausea, vomiting , and epigastric pain found with SBO. ECG with LAD, elevated troponin which normalized. 1. elevated troponin- this most likely represents a nonischemic pattern given the normalization in less than 24 hours ([place] stays elevated for 10-14 days). ECG is stable. LAD is likely chronic due to hypertensive heart disease. No need for ischemia workup at this time. 2. Preoperative Cardiac Evaluation-- there are no cardiac contraindications to surgery. She has risk factors for CAD but no angina or CHF symptoms. Please call us for follow up as needed.
--- NOTE | 2018-05-07 18:39 | HOSP ---
Subjective - Review of Symptoms HEENT: Yes: Head Aches Gastrointestinal: Yes: Abdominal Pain Musculoskeletal: Yes: Back Pain Physical Examination Vital Signs: Vital Signs Temperature 98.1 F 05/07/18 18:05 Pulse Rate 65 05/07/18 18:05 Respiratory Rate 16 05/07/18 18:05 Blood Pressure 145/74 05/07/18 18:05 O2 Sat by Pulse Oximetry (%) 96 05/07/18 18:12 Labs: CBC, BMP 05/07/18 03:30 05/07/18 02:00 Hospitalist Encounter Assessment: 67 year old female with a PMH significant for Patient received from [facility] for surgical consult with Dr. Cade to r/o SBO. Patient seen and examined. Patient stable; afebrile, VSS. Pt c/o migraine MAY, nausea vomiting have resolved. Denies chest pain, SOB, lightheadedness. Patient on Dilaudid 1 mg q 8 hrs (on Oxycodone 30 mg/day at home, followed by pain management for chronic back pain). Will give IV APAP. NPO. Dr. Cade to see patient tonight.
[2018-05-07] MEDS ORDERED: LACTATED RINGERS SOLUTION 1,000 ML/1,000 ML INFUS.BAG IV SCH (20:12)
--- NOTE | 2018-05-07 21:35 | CONSULT ---
Consult Consult Specialty:: General Surgery Referred by:: Dr. Berry/Saloni Juarez Reason for Consultation:: SBO - History of Present Illness Chief Complaint: epigastric pain, N/V - History Source History Provided By: Patient, Family Member (daughters at bedside) Limitations to Obtaining History: No Limitations - Past Medical History LANDSCAPE CONTRACTOR: Yes: Migraine Cardio/Vascular: Yes: HTN, Hyperlipdemia Pulmonary: Yes: Asthma Gastrointestinal: Yes: Constipation (related to chronic opioid use) Renal/: Yes: Other (h/o multiple ureteral stents/exchanges in early after pelvic surgery "to save kidney") Reproductive: Yes: Endometriosis, Postmenopausal ...: No Musculoskeletal: Yes: Chronic low back pain, Osteoarthritis ENT: Yes: Allergic Rhinitis Endocrine: Yes: Diabetes Mellitus Dermatology: Yes: Eczema (palms of hands intermittently) - Past Surgical History Past Surgical History: Yes: Cholecystectomy (laparoscopic), Hysterectomy ( partial with one ovary; she deteriorated during surgery, which was prematurely ended (intended hyst/BSO)), Oopherectomy (not sure which side was completed) Additional Surgical History: laparotomy for "twisted intestine" not sure if resection done, also ovarian cyst surgery - Alcohol/Substance Use Hx Alcohol Use: No (quit social use 1990) History of Substance Use: reports: Prescription (percocet 10/325 tid scheduled for many years) Date of Last Use: 05/06/18 (am) - Smoking History Smoking history: Former smoker Have you smoked in the past 12 months: No Aproximately how many cigarettes per day: 20 (~45pk-yr history) If you are a former smoker, when did you quit?: 5 yrs ago - Social History ADL: Independent Home Medications - Allergies Allergies/Adverse Reactions: Allergies Allergy/AdvReac Type Severity Reaction Status Date / Time morphine Allergy Rash Verified 05/06/18 18:44 - Home Medications Home Medications: Ambulatory Orders Amlodipine Besylate/Benazepril [Lotrel 5-10 mg Capsule] 1 each PO DAILY Butalb/Acetaminophen/Caffeine [Qubrlg-Fdyqrcca-Hpmh 50-325-40] 1 each PO Q4H PRN 03/03/18 Clobetasol Propionate/Emoll [Clobetasol Emollient 0.05% Crm] 15 gm TP BID PRN Cyclosporine [Restasis] 2 each OP BID 03/03/18 Dapagliflozin/Metformin HCl [Xigduo Xr 5 mg-1,000 mg Tablet] 1 each PO DAILY Fenofibrate Nanocrystallized [Fenofibrate] 145 mg PO DAILY 03/03/18 Metaxalone [Skelaxin] 800 mg PO TID PRN 03/03/18 Metoprolol Succinate [Toprol Xl] 25 mg PO DAILY 03/03/18 Oxycodone HCl/Acetaminophen [Oxycodone-Acetaminophen 10-325] 1 each PO TID 05/07 Family Disease History - Family Disease History Other Family History: multiple health problems in many family members, noncontributory Review of Systems - Review of Systems Constitutional: denies: Chills, Fever Eyes: reports: Other (wears glasses). denies: Recent Change in Vision HENT: denies: Difficult Swallowing, Throat Pain Neck: denies: Swollen Glands, Tenderness Cardiovascular: reports: Palpitations (over last month, was going to see flatwork assembler on Tuesday). denies: Chest Pain Respiratory: reports: SOB. denies: Cough Gastrointestinal: reports: Abdominal Pain (with hpi), Constipation (stays regular with probiotic yogurt), Nausea (with hpi), Vomiting (with hpi). denies : Diarrhea, Vomiting Blood Genitourinary: denies: Burning, Dysuria Musculoskeletal: reports: Back Pain (chronic), Joint Pain (left knee at times) Integumentary: reports: Eczema (palms of hands but not now). denies: Change in Color, Rash Neurological: reports: Headache (tends to migraines). denies: Dizziness Psychiatric: denies: Anxiety, Depression Physical Exam Vital Signs: Vital Signs Temperature 98.1 F 05/07/18 18:05 Pulse Rate 65 05/07/18 18:05 Respiratory Rate 16 05/07/18 18:05 Blood Pressure 145/74 05/07/18 18:05 O2 Sat by Pulse Oximetry (%) 96 05/07/18 18:12 Constitutional: Yes: Well Nourished, No Distress, Calm Eyes: Yes: Conjunctiva Clear, EOM Intact HENT: Yes: Atraumatic, Normocephalic, Other (NGT in place with clear reddish- brown output, about 150ml in canister) Neck: Yes: Supple, Trachea Midline Cardiovascular: Yes: Regular Rate and Rhythm. No: Murmur Respiratory: Yes: Regular, CTA Bilaterally Gastrointestinal: Yes: Soft, Hernia (possible RUQ at site of scar, no content extruded), Hypoactive Bowel Sounds, Tenderness (LUQ/LLQ, mid-abdomen and epigastric), Tenderness, Epigastrium, Other (healed scars - Pfannenstiel, lower midline, laparoscopic). No: Tenderness, Rebound ...Rectal Exam: Yes: Deferred Renal/: No: CVA Tenderness - Left, CVA Tenderness - Right Musculoskeletal: No: Joint Stiffness, Joint Swelling Extremities: No: Cool, Cyanosis Edema: No Peripheral Pulses WNL: Yes Integumentary: No: Jaundice, Rash Neurological: Yes: Alert, Oriented Psychiatric: Yes: Alert, Oriented Labs: CBC, BMP 05/07/18 03:30 05/07/18 02:00 CMP Sodium 139 mmol/L (136-145) 05/07/18 02:00 Potassium 4.3 mmol/L (3.5-5.1) 05/07/18 02:00 Chloride 103 mmol/L (98-107) 05/07/18 02:00 Carbon Dioxide 28 mmol/L (21-32) 05/07/18 02:00 Anion Gap 7 MMOL/L (8-16) L 05/07/18 02:00 BUN 18 mg/dL (7-18) 05/07/18 02:00 Creatinine 0.5 mg/dL (0.55-1.3) L 05/07/18 02:00 Creat Clearance w eGFR > 60 (>60) 05/07/18 02:00 POC Glucometer 87 UNITS (80-120) 05/07/18 18:03 Random Glucose 108 mg/dL (74-106) H 05/07/18 02:00 Hemoglobin A1c % 6.7 % (4.2-6.3) H 05/07/18 00:35 Calcium 8.7 mg/dL (8.5-10.1) 05/07/18 02:00 Magnesium 2.3 mg/dL (1.8-2.4) 05/07/18 02:00 Total Bilirubin 0.4 mg/dL (0.2-1) 05/07/18 02:00 AST 17 U/L (15-37) 05/07/18 02:00 ALT 22 U/L (13-61) 05/07/18 02:00 Alkaline Phosphatase 59 U/L (45-117) 05/07/18 02:00 Creatine Kinase 53 IU/L (26-192) 05/07/18 02:00 Troponin I < 0.02 ng/ml (0.00-0.05) 05/07/18 02:00 Total Protein 7.0 g/dl (6.4-8.2) 05/07/18 02:00 Albumin 3.2 g/dl (3.4-5.0) L 05/07/18 02:00 Triglycerides 90 mg/dL (0-150) 05/07/18 00:35 Cholesterol 148 mg/dL (50-200) 05/07/18 00:35 Total LDL Cholesterol 80 mg/dL (5-100) 05/07/18 00:35 HDL Cholesterol 52 mg/dL (40-60) 05/07/18 00:35 Lipase 195 U/L (73-393) 05/06/18 18:05 TSH 0.64 uIU/ml (0.358-3.74) 05/07/18 00:35 INR, PTT INR 0.98 (0.83-1.09) 05/07/18 00:35 Urine Test Results Urine Color Yellow 05/06/18 19:53 Urine Appearance Clear 05/06/18 19:53 Urine pH 7.0 (4.5-8) 05/06/18 19:53 Ur Specific [place] 1.015 (1.010-1.035) 05/06/18 19:53 Urine Protein Negative (NEGATIVE) 05/06/18 19:53 Urine Glucose (UA) Negative (NEGATIVE) 05/06/18 19:53 Urine Ketones Negative (NEGATIVE) 05/06/18 19:53 Urine Blood Negative (NEGATIVE) 05/06/18 19:53 Urine Nitrite Negative (NEGATIVE) 05/06/18 19:53 Urine Bilirubin Negative (NEGATIVE) 05/06/18 19:53 Ur Leukocyte Esterase Trace (NEGATIVE) H 05/06/18 19:53 Urine RBC 0-2 /hpf (0-3) 05/06/18 19:53 Urine WBC 2-5 (0-5) 05/06/18 19:53 Ur Epithelial Cells Few /HPF 05/06/18 19:53 Imaging - Results X-ray: Report Reviewed, Image Reviewed Cat Scan: Report Reviewed, Image Reviewed Problem List - Problems (1) Small bowel obstruction due to adhesions Code(s): K56.50 - INTESTNL ADHESIONS, UNSP TO PARTIAL VERSUS COMPLETE OBST (2) Epigastric pain Code(s): R10.13 - EPIGASTRIC PAIN (3) Nausea and vomiting Code(s): R11.2 - NAUSEA WITH VOMITING, UNSPECIFIED (4) Bandemia Code(s): D72.825 - BANDEMIA
[2018-05-07] MEDS: HYDROmorphone HCl 2 MG/ML VIAL IVPB SCH (21:48)
[2018-05-07] MEDS: ONDANSETRON 4 MG/2 ML VIAL IVPUSH PRN (21:51)
[2018-05-07] MEDS ORDERED: PATIENT'S OWN MEDICATION (NON-FORMULARY) (Cyclosporine [Restasis] 1 EACH) OP SCH (22:00)
[2018-05-07] MEDS: PATIENT'S OWN MEDICATION (NON-FORMULARY) (Cyclosporine [Restasis] 1 EACH) OU SCH (22:13)
[2018-05-07] MEDS: METOPROLOL TARTRATE 5 MG/5 ML VIAL IVPB SCH (22:13)
[2018-05-08] MEDS: METOPROLOL TARTRATE 5 MG/5 ML VIAL IVPB SCH ×4 (02:33→20:35)
[2018-05-08] MEDS: ACETAMINOPHEN 1000 MG/100 ML VIAL (NON FORMULARY) IVPB PRN ×3 (03:17→20:34)
[2018-05-08] MEDS: HYDROmorphone HCl 2 MG/ML VIAL IVPB SCH ×3 (06:29→22:54)
[2018-05-08] MEDS: INSULIN SLIDING SCALE (NOVOLOG) 1 VIAL SQ SCH ×4 (06:32→21:57)
[2018-05-08] MEDS: ONDANSETRON 4 MG/2 ML VIAL IVPUSH PRN ×3 (06:36→22:53)
[2018-05-08] MEDS ORDERED: PT OWN MED DRAWER 7, Y5N ONE ×3 (06:45→23:16)
[2018-05-08] MEDS: PATIENT'S OWN MEDICATION (NON-FORMULARY) (Cyclosporine [Restasis] 1 EACH) OU SCH ×2 (09:00→21:49)
[2018-05-08] MEDS ORDERED: PANTOPRAZOLE SODIUM 40 MG VIAL IVPUSH ONE (09:53)
--- NOTE | 2018-05-08 10:04 | PN ---
Physical Exam: SUBJECTIVE: Patient seen and examined, having mild epigastric pain. had headache overnight relieved with tylenol IV OBJECTIVE: labs ordered for a.m. cbc, bmp, mag (t&S resulted) brown output 1100 overnight will give protonix 40mg push x 1 now incentive spirometer Vital Signs Period Temp Pulse Resp BP Sys/Amaral Pulse Ox Last 24 Hr 98.1 F-98.3 F 61-80 16-20 128-150/60-74 96-96 GENERAL: The patient is awake, alert, and fully oriented, in no acute distress. HEAD: Normal with no signs of trauma. EYES: PERRL, extraocular movements intact, sclera anicteric, conjunctiva clear. No ptosis. ENT: Ears normal, nares patent, oropharynx clear without exudates, moist mucous membranes. NECK: Trachea midline, full range of motion, supple. LUNGS: Breath sounds equal, clear to auscultation bilaterally HEART: Regular rate and rhythm, S1, S2 without murmur, rub or gallop. ABDOMEN: Soft, mild tenderness on epigastric region. mildly distended. NGT EXTREMITIES: no edema. NEUROLOGICAL: normal speech, gait not observed. PSYCH: Normal mood, normal affect. SKIN: Warm, dry, normal turgor, no rashes or lesions noted Laboratory Results - last 24 hr 05/07/18 05/07/18 05/08/18 18:03 21:46 06:32 POC Glucometer 87 80 81 Active Medications Generic Name Dose Route Start Last Admin Trade Name Freq PRN Reason Stop Dose Admin Acetaminophen 1,000 mg 05/07/18 20:12 05/08/18 03:17 Ofirmev Injection - IVPB 1,000 mg Q6H PRN Administration PAIN Hydromorphone HCl 1 mg 05/07/18 22:00 05/08/18 06:29 Dilaudid Vial - IVPB 1 mg Q8H SHAQUILLE Administration Lactated Ringer's 1,000 ml in 1,000 mls @ 100 mls/hr 05/07/18 20:12 05/07/18 21:49 Lactated Ringers Solution IV 100 mls/hr ASDIR SHAQUILLE Administration Insulin Aspart 1 vial 05/07/18 22:00 05/08/18 06:32 Novolog Vial Sliding Scale - SQ Not Given ACHS SHAQUILLE Protocol Metoprolol Tartrate 2.5 mg 05/07/18 18:23 05/08/18 09:00 Lopressor Injection - IVPB 2.5 mg Q6H-IV SHAQUILLE Administration Non-Formulary Medication 15 gm 05/07/18 20:12 Clobetasol Propionate/Emoll [Clobetasol Emollient 0.05% Crm] TP BID PRN DRY SKIN Non-Formulary Medication 1 each 05/07/18 22:00 05/08/18 09:00 Cyclosporine [Restasis] OU 1 each BID SHAQUILLE Administration Ondansetron HCl 4 mg 05/07/18 20:12 05/08/18 06:36 Zofran Injection IVPUSH 4 mg Q8H PRN Administration NAUSEA AND/OR VOMITING ASSESSMENT/PLAN: Patient is a 67 year old female who presents to the ED for abdominal cramping and nausea with multiple episodes of nonbloody emesis and was found to have an SBO. She has a past medical history of diabetes, hypertension, hyperlipidemia, multiple herniated discs, chronic pain, asthma, SBO and ovarian cysts. ----- SBO Elevated troponin diabetes II Hypertensin HLD chronic pain/back pain migranes ovarian cysts ------ GI Small Bowel obstruction: NPO, NGT for low intermittent suction. monitor output. -Continue iv hydration with d5. -pain management -surgery following, conservative management for now with ngt -abdominal xray in a.m. Card: elevated troponin. Cardiology consulted and following, likely secondary to demand secondary to acute presentation No chest pain, nausea or vomiting. stable. cleared by cardiology for surgery if needed. Hypertension. On IV metoprolol. bp controlled. HLD. hold PO meds Endocrine: diabetes. monitor while q6 while NPO. maintenance ivf with dextrose. Not on home anti hypoglycemics. hmga1c in a.m. Neuro: migranes, chronic on iv tylenol. fen On d5 ns with 20 meq monitor electrolytes npo, ngt to intermittent suction prophy protonix iv push Visit type - Emergency Visit Emergency Visit: Yes ED Registration Date: 05/07/18 Care time: The patient presented to the Emergency Department on the above date and was hospitalized for further evaluation of their emergent condition. - New Patient This patient is new to me today: Yes Date on this admission: 05/08/18 - Critical Care Critical Care patient: No - Discharge Referral Referred to [facility] Med P.C.: No
[2018-05-08 11:46] LABS: BASO % 0.7 % (0-2.0); EOS % 1.5 % (0-4.5); HEMATOCRIT 38.2 % (32.4-45.2); HEMOGLOBIN 13.3 GM/dL (10.7-15.3); LYMPH % 19.7 % (8-40); MCH 31.1 pg (25.7-33.7); MCHC 34.7 g/dl (32.0-36.0); MEAN CELL VOLUME 89.5 fl (80-96); MEAN PLT VOLUME 8.3 fl (7.5-11.1); MONO % 5.9 % (3.8-10.2); NEUT % 72.2 % (42.8-82.8); PLATELET COUNT 386 K/MM3 (134-434); RBC 4.27 M/mm3 (3.60-5.2); RDW 14.2 % (11.6-15.6); WHITE BLOOD COUNT 11.8 K/mm3 (4.0-10.0)
[2018-05-08 12:16] LABS: ALBUMIN 3.2 g/dl (3.4-5.0); ALK PHOS 59 U/L (45-117); ANION GAP 11 MMOL/L (8-16); BILIRUBIN,TOTAL 0.4 mg/dL (0.2-1); BLOOD UREA NITROGEN 12 mg/dL (7-18); CALCIUM 8.8 mg/dL (8.5-10.1); CHLORIDE 101 mmol/L (98-107); CO2 27 mmol/L (21-32); CREATININE 0.4 mg/dL (0.55-1.3); GLUCOSE,RANDOM 68 mg/dL (74-106); MAGNESIUM 2.2 mg/dL (1.8-2.4); POTASSIUM 4.1 mmol/L (3.5-5.1); SGOT/AST 13 U/L (15-37); SGPT/ALT 21 U/L (13-61); SODIUM 140 mmol/L (136-145)
[2018-05-08] MEDS ORDERED: PHENOL 177 ML SPRAY BOTTLE MM PRN (13:14)
[2018-05-08] MEDS: D5-1/2NS+20 MEQ KCL - 20 MEQ/1,000 ML INFUS.BAG IV SCH (16:00)
--- NOTE | 2018-05-08 20:34 | PN ---
Progress Note, Physician History of Present Illness: Pt with SBO s/p multiple abdominal surgeries, hostile abdomen by history. NPO/ IVF/NGT with reddish-brown output in canister. Seems to have slipped out several cm from yesterday, at 55cm at nares now. Seen and examined in room in bed with family at bedside. Pt c/o pain in throat and ears because of NGT. Still with some abdominal pain, also some back pain, but has been up walking twice today and sat up earlier. No gas today, no BM. Belching some. WBC coming down. Pt does c/o some headache as well. Asked for Tylenol now. - Current Medication List Current Medications: Active Medications Acetaminophen (Ofirmev Injection -) 1,000 mg IVPB Q6H PRN PRN Reason: PAIN Last Admin: 05/08/18 13:32 Dose: 1,000 mg Hydromorphone HCl (Dilaudid Vial -) 1 mg IVPB Q8H SHAQUILLE Last Admin: 05/08/18 15:00 Dose: 1 mg Potassium Chloride/Dextrose/Sod Cl (D5-1/2ns+20 Meq Kcl -) 20 meq in 1,000 mls @ 100 mls/hr IV ASDIR SHAQUILLE Last Admin: 05/08/18 16:00 Dose: 100 mls/hr Insulin Aspart (Novolog Vial Sliding Scale -) 1 vial SQ ACHS [facility]; Protocol Last Admin: 05/08/18 15:51 Dose: Not Given Metoprolol Tartrate (Lopressor Injection -) 2.5 mg IVPB Q6H-IV SHAQUILLE Last Admin: 05/08/18 15:28 Dose: 2.5 mg Non-Formulary Medication (Cyclosporine [Restasis]) 1 each OU BID SHAQUILLE Last Admin: 05/08/18 09:00 Dose: 1 each Ondansetron HCl (Zofran Injection) 4 mg IVPUSH Q8H PRN PRN Reason: NAUSEA AND/OR VOMITING Last Admin: 05/08/18 15:35 Dose: 4 mg Phenol/Menthol (Chloraseptic -) 1 spray MM Q6HPO PRN PRN Reason: SORE THROAT Last Admin: 05/08/18 14:20 Dose: 1 spr - Objective Vital Signs: Vital Signs Temperature 98.4 F 05/08/18 18:00 Pulse Rate 64 05/08/18 18:00 Respiratory Rate 18 05/08/18 18:00 Blood Pressure 136/62 05/08/18 18:00 O2 Sat by Pulse Oximetry (%) 96 05/08/18 11:30 Constitutional: Yes: Well Nourished, No Distress, Calm Eyes: Yes: Conjunctiva Clear, EOM Intact HENT: Yes: Atraumatic, Normocephalic, Other (NGT in place, advanced with swallows to ~66cm at nares and resecured) Gastrointestinal: Yes: Soft, Abdomen, Obese, Tenderness (mostly LUQ/LLQ, periumbilical and left mid-abdomen, no rebound, voluntary guarding intermittently), Tenderness, Epigastrium ...Rectal Exam: Yes: Deferred Extremities: No: Cool, Cyanosis Integumentary: No: Jaundice, Rash Neurological: Yes: Alert, Oriented Labs: CBC, BMP 05/08/18 11:10 05/08/18 11:10 wbc down from 15 glucose low - changed fluids to D5 1/2NS + 20 KCl earlier today Problem List - Problems (1) Small bowel obstruction due to adhesions Assessment/Plan: continue NPO/IVF/NGT pain meds prn; scheduled narcotics given long-term home use of Percocet as well GI/DVT prophylaxis encouraged OOB, chair and use of IS ok for Cepacol lozenges prn trend labs serial exams AXR in am continue with conservative treatment would not muller to surgical intervention with known hostile abdomen unless emergent 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
[2018-05-08] MEDS ORDERED: INSULIN (NOVOLOG) ASPART 100 UNITS/ML 10ML VIAL ONE (21:43)
[2018-05-08] MEDS: BENZOCAINE/MENTH/CETYLPYRD CL 1 EACH LOZENGE MM PRN (21:50)
[2018-05-09] MEDS ORDERED: PT OWN MED DRAWER 7, Y5N ONE ×2 (02:32→12:38)
[2018-05-09] MEDS: BENZOCAINE/MENTH/CETYLPYRD CL 1 EACH LOZENGE MM PRN ×2 (02:36→12:35)
[2018-05-09] MEDS: METOPROLOL TARTRATE 5 MG/5 ML VIAL IVPB SCH ×4 (02:37→22:06)
[2018-05-09] MEDS: HYDROmorphone HCl 2 MG/ML VIAL IVPB SCH ×3 (06:04→22:05)
[2018-05-09] MEDS: INSULIN SLIDING SCALE (NOVOLOG) 1 VIAL SQ SCH ×4 (06:12→21:56)
[2018-05-09] MEDS: ONDANSETRON 4 MG/2 ML VIAL IVPUSH PRN ×2 (07:33→22:05)
[2018-05-09] MEDS: ACETAMINOPHEN 1000 MG/100 ML VIAL (NON FORMULARY) IVPB PRN ×2 (07:33→17:58)
[2018-05-09 07:37] LABS: EOS % 2.1 % (0-4.5); HEMATOCRIT 36.7 % (32.4-45.2); HEMOGLOBIN 12.3 GM/dL (10.7-15.3); LYMPH % 19.1 % (8-40); MCH 29.9 pg (25.7-33.7); MCHC 33.5 g/dl (32.0-36.0); MEAN CELL VOLUME 89.1 fl (80-96); MEAN PLT VOLUME 7.6 fl (7.5-11.1); MONO % 6.2 % (3.8-10.2); NEUT % 71.6 % (42.8-82.8); PLATELET COUNT 347 K/MM3 (134-434); RBC 4.12 M/mm3 (3.60-5.2); RDW 13.8 % (11.6-15.6); WHITE BLOOD COUNT 12.4 K/mm3 (4.0-10.0)
[2018-05-09 08:40] LABS: ALBUMIN 3.2 g/dl (3.4-5.0); ALK PHOS 61 U/L (45-117); ANION GAP 8 MMOL/L (8-16); BILIRUBIN,TOTAL 0.4 mg/dL (0.2-1); BLOOD UREA NITROGEN 8 mg/dL (7-18); CHLORIDE 99 mmol/L (98-107); CO2 28 mmol/L (21-32); CREATININE 0.4 mg/dL (0.55-1.3); GLUCOSE,RANDOM 83 mg/dL (74-106); MAGNESIUM 2.3 mg/dL (1.8-2.4); POTASSIUM 4.1 mmol/L (3.5-5.1); SGOT/AST 16 U/L (15-37); SGPT/ALT 20 U/L (13-61); SODIUM 135 mmol/L (136-145); TOT PROT 7.1 g/dl (6.4-8.2)
[2018-05-09] MEDS: PANTOPRAZOLE SODIUM 40 MG VIAL IVPUSH SCH (09:32)
[2018-05-09] MEDS: PATIENT'S OWN MEDICATION (NON-FORMULARY) (Cyclosporine [Restasis] 1 EACH) OU SCH ×2 (09:33→22:10)
[2018-05-09] MEDS: D5-1/2NS+20 MEQ KCL - 20 MEQ/1,000 ML INFUS.BAG IV SCH (09:34)
--- NOTE | 2018-05-09 10:12 | PN ---
Progress Note, Physician History of Present Illness: Pt with SBO s/p multiple abdominal surgeries, hostile abdomen by history. NPO/ IVF/NGT with ~440 out overnight. Seen and examined in room just back from AXR. Pt c/o headache. Abdominal pain improving, minimal now. No gas today, no BM. Belching some. Tylenol helping headache prn. - Current Medication List Current Medications: Active Medications Acetaminophen (Ofirmev Injection -) 1,000 mg IVPB Q6H PRN PRN Reason: PAIN Last Admin: 05/09/18 07:33 Dose: 1,000 mg Benzocaine/Menthol (Cepacol Lozenge -) 1 each MM Q2H PRN PRN Reason: SORE THROAT Last Admin: 05/09/18 02:36 Dose: 1 each Hydromorphone HCl (Dilaudid Vial -) 1 mg IVPB Q8H SHAQUILLE Last Admin: 05/09/18 06:04 Dose: 1 mg Potassium Chloride/Dextrose/Sod Cl (D5-1/2ns+20 Meq Kcl -) 20 meq in 1,000 mls @ 100 mls/hr IV ASDIR SHAQUILLE Last Admin: 05/09/18 09:34 Dose: 100 mls/hr Insulin Aspart (Novolog Vial Sliding Scale -) 1 vial SQ ACHS [facility]; Protocol Last Admin: 05/09/18 06:12 Dose: Not Given Metoprolol Tartrate (Lopressor Injection -) 2.5 mg IVPB Q6H-IV SHAQUILLE Last Admin: 05/09/18 09:33 Dose: 2.5 mg Non-Formulary Medication (Cyclosporine [Restasis]) 1 each OU BID SHAQUILLE Last Admin: 05/09/18 09:33 Dose: 1 each Ondansetron HCl (Zofran Injection) 4 mg IVPUSH Q8H PRN PRN Reason: NAUSEA AND/OR VOMITING Last Admin: 05/09/18 07:33 Dose: 4 mg Pantoprazole Sodium (Protonix Iv) 40 mg IVPUSH DAILY [facility] Last Admin: 05/09/18 09:32 Dose: 40 mg Phenol/Menthol (Chloraseptic -) 1 spray MM Q6HPO PRN PRN Reason: SORE THROAT Last Admin: 05/08/18 14:20 Dose: 1 spr - Objective Vital Signs: Vital Signs Temperature 99.2 F 05/09/18 05:50 Pulse Rate 67 05/09/18 09:33 Respiratory Rate 18 05/09/18 05:50 Blood Pressure 153/90 05/09/18 09:33 O2 Sat by Pulse Oximetry (%) 96 05/08/18 21:00 Constitutional: Yes: Well Nourished, No Distress, Calm Eyes: Yes: Conjunctiva Clear, EOM Intact HENT: Yes: Atraumatic, Normocephalic, Other (NGT in place) Gastrointestinal: Yes: Soft, Abdomen, Obese, Tenderness (LUQ, minimal, improved , softer at L mid-abdomen and periumbilical as well), Tenderness, Epigastrium ( minimal, improved) Extremities: No: Cool, Cyanosis Integumentary: No: Jaundice, Rash Neurological: Yes: Alert, Oriented. No: Unsteady Gait (using cane but ambulating well) Labs: CBC, BMP 05/09/18 06:40 05/09/18 06:40 - ....Imaging X-ray: Report Reviewed, Image Reviewed (images personally reviewed - gas in rectum and some in colon with residual contrast in hepatic flexure, not much in SB on left as yesterday, nonspecific gas pattern, improved overall) Problem List - Problems (1) Small bowel obstruction due to adhesions Assessment/Plan: continue NPO/IVF/NGT pain meds prn; scheduled narcotics given long-term home use of Percocet as well GI/DVT prophylaxis encouraged OOB, chair and use of IS ok for Cepacol lozenges prn trend labs serial exams given improvement in AXR and exam today, will clamp NG for now and reassess tonight or in am for removal, though would not muller to resume po yet continue with conservative treatment would not muller to surgical intervention with known hostile abdomen unless emergent will follow with you Code(s): K56.50 - INTESTNL ADHESIONS, UNSP TO PARTIAL VERSUS COMPLETE OBST (2) Epigastric pain Code(s): R10.13 - EPIGASTRIC PAIN (3) Nausea and vomiting Code(s): R11.2 - NAUSEA WITH VOMITING, UNSPECIFIED Qualifiers: Vomiting type: unspecified Vomiting Intractability: non-intractable Qualified Code(s): R11.2 - Nausea with vomiting, unspecified (4) Bandemia Code(s): D72.825 - BANDEMIA
--- NOTE | 2018-05-09 11:38 | PN ---
Physical Exam: SUBJECTIVE: Patient seen and examined; no issues overnight. NGT clamped this AM by surgical services; she is hopeful it is removed. Agrees stomach less uncomfortable and less distended. Still no BM; gas 2 days ago. She is ambulating. Pain controlled. No chest pain, SOB, etc. 10 sys ROS done and negative aside from HPI OBJECTIVE: Vital Signs Period Temp Pulse Resp BP Sys/Amaral Pulse Ox Last 24 Hr 98.2 F-99.2 F 58-85 18-20 131-153/56-90 95-96 GENERAL: The patient is awake, alert, and fully oriented, in no acute distress. HEAD: Normal with no signs of trauma. EYES: PERRL, extraocular movements intact, sclera anicteric, conjunctiva clear. No ptosis. ENT: Ears normal, nares patent, oropharynx clear without exudates, moist mucous membranes. NECK: Trachea midline, full range of motion, supple. LUNGS: Breath sounds equal, clear to auscultation bilaterally, no wheezes, no crackles, no accessory muscle use. HEART: Regular rate and rhythm, S1, S2 without murmur, rub or gallop. ABDOMEN: Soft, less distended and minimally tender; NGT inserted and clamped. EXTREMITIES: 2+ pulses, warm, well-perfused, no edema. NEUROLOGICAL: Cranial nerves II through XII grossly intact. Normal speech, gait not observed. PSYCH: Normal mood, normal affect. SKIN: Warm, dry, normal turgor, no rashes or lesions noted Laboratory Results - last 24 hr 05/08/18 05/08/18 05/08/18 11:10 11:10 15:44 WBC 11.8 H RBC 4.27 Hgb 13.3 Hct 38.2 MCV 89.5 MCH 31.1 MCHC 34.7 RDW 14.2 Plt Count 386 MPV 8.3 D Absolute Neuts (auto) 8.5 H Neutrophils % 72.2 Lymphocytes % 19.7 Monocytes % 5.9 Eosinophils % 1.5 Basophils % 0.7 Nucleated RBC % 0 Sodium 140 Potassium 4.1 Chloride 101 Carbon Dioxide 27 Anion Gap 11 BUN 12 Creatinine 0.4 L Creat Clearance w eGFR > 60 POC Glucometer 72 Random Glucose 68 L Calcium 8.8 Magnesium 2.2 Total Bilirubin 0.4 AST 13 L ALT 21 Alkaline Phosphatase 59 Total Protein 7.0 Albumin 3.2 L 11/05/18 11/06/18 11/06/18 21:55 06:11 06:40 WBC 12.4 H RBC 4.12 Hgb 12.3 Hct 36.7 MCV 89.1 MCH 29.9 MCHC 33.5 RDW 13.8 Plt Count 347 MPV 7.6 Absolute Neuts (auto) 8.9 H Neutrophils % 71.6 Lymphocytes % 19.1 Monocytes % 6.2 Eosinophils % 2.1 Basophils % 1.0 Nucleated RBC % 0 Sodium Potassium Chloride Carbon Dioxide Anion Gap BUN Creatinine Creat Clearance w eGFR POC Glucometer 84 85 Random Glucose Calcium Magnesium Total Bilirubin AST ALT Alkaline Phosphatase Total Protein Albumin 05/09/18 06:40 WBC RBC Hgb Hct MCV MCH MCHC RDW Plt Count MPV Absolute Neuts (auto) Neutrophils % Lymphocytes % Monocytes % Eosinophils % Basophils % Nucleated RBC % Sodium 135 L Potassium 4.1 Chloride 99 Carbon Dioxide 28 Anion Gap 8 BUN 8 Creatinine 0.4 L Creat Clearance w eGFR > 60 POC Glucometer Random Glucose 83 Calcium 9.0 Magnesium 2.3 Total Bilirubin 0.4 AST 16 ALT 20 Alkaline Phosphatase 61 Total Protein 7.1 Albumin 3.2 L Active Medications Generic Name Dose Route Start Last Admin Trade Name Freq PRN Reason Stop Dose Admin Acetaminophen 1,000 mg 05/07/18 20:12 05/09/18 07:33 Ofirmev Injection - IVPB 1,000 mg Q6H PRN Administration PAIN Benzocaine/Menthol 1 each 05/08/18 20:28 05/09/18 02:36 Cepacol Lozenge - MM 1 each Q2H PRN Administration SORE THROAT Hydromorphone HCl 1 mg 05/07/18 22:00 05/09/18 06:04 Dilaudid Vial - IVPB 1 mg Q8H SHAQUILLE Administration Potassium Chloride/Dextrose/Sod Cl 20 meq in 1,000 mls @ 100 mls/hr 05/08/18 16:00 05/09/18 09:34 D5-1/2ns+20 Meq Kcl - IV 100 mls/hr ASDIR SHAQUILLE Administration Insulin Aspart 1 vial 05/07/18 22:00 05/09/18 06:12 Novolog Vial Sliding Scale - SQ Not Given ACHS SHAQUILLE Protocol Metoprolol Tartrate 2.5 mg 05/07/18 18:23 05/09/18 09:33 Lopressor Injection - IVPB 2.5 mg Q6H-IV SHAQUILLE Administration Non-Formulary Medication 1 each 05/07/18 22:00 05/09/18 09:33 Cyclosporine [Restasis] OU 1 each BID SHAQUILLE Administration Ondansetron HCl 4 mg 05/07/18 20:12 05/09/18 07:33 Zofran Injection IVPUSH 4 mg Q8H PRN Administration NAUSEA AND/OR VOMITING Pantoprazole Sodium 40 mg 05/09/18 10:00 05/09/18 09:32 Protonix Iv IVPUSH 40 mg DAILY SHAQUILLE Administration Phenol/Menthol 1 spray 05/08/18 13:14 05/08/18 14:20 Chloraseptic - MM 1 spr Q6HPO PRN Administration SORE THROAT ASSESSMENT/PLAN: Mrs. Sarabia is a 67 y/o HF presenting with SBO. She is improving clinically 1) Small Bowel Obstruction -Improving; NGT clamped -Continue IVF, serial abdominal exams, pain control -Monitor for flatus and BM -Removal of NGT and advancing to PO deferred to surgical services; appreciate their input. 2) Elevated Troponin on admission -[place] to not represent ACS; no CP/SOB since hospitalized -Followup with [facility] as outpatient for further workup 3) Chronic Pain -Controlled; monitor sx 4) HLD -Resume home meds when taking PO 5) HTN -Controlled; monitor and resume prior home tx before discharged. 6) DM -A1c 6/7%; continue current management with close PCP followup Full Code Dispo pending removal of NGT Visit type - Emergency Visit Emergency Visit: No - New Patient This patient is new to me today: No - Critical Care Critical Care patient: No
[2018-05-10] MEDS: D5-1/2NS+20 MEQ KCL - 20 MEQ/1,000 ML INFUS.BAG IV SCH ×2 (01:00→13:40)
[2018-05-10] MEDS ORDERED: PT OWN MED DRAWER 7, Y5N ONE ×3 (01:06→09:29)
[2018-05-10] MEDS: BENZOCAINE/MENTH/CETYLPYRD CL 1 EACH LOZENGE MM PRN ×2 (01:10→10:43)
[2018-05-10] MEDS: METOPROLOL TARTRATE 5 MG/5 ML VIAL IVPB SCH ×4 (02:56→22:05)
[2018-05-10] MEDS: HYDROmorphone HCl 2 MG/ML VIAL IVPB SCH ×2 (05:43→13:39)
[2018-05-10] MEDS: INSULIN SLIDING SCALE (NOVOLOG) 1 VIAL SQ SCH ×4 (06:05→21:29)
[2018-05-10] MEDS: PANTOPRAZOLE SODIUM 40 MG VIAL IVPUSH SCH (10:43)
[2018-05-10] MEDS: PATIENT'S OWN MEDICATION (NON-FORMULARY) (Cyclosporine [Restasis] 1 EACH) OU SCH ×2 (10:43→21:30)
[2018-05-10] MEDS: ACETAMINOPHEN 1000 MG/100 ML VIAL (NON FORMULARY) IVPB PRN (12:27)
[2018-05-10] MEDS: ONDANSETRON 4 MG/2 ML VIAL IVPUSH PRN (12:38)
--- NOTE | 2018-05-10 15:08 | PN ---
Physical Exam: SUBJECTIVE: Patient seen and examined OBJECTIVE: Vital Signs Period Temp Pulse Resp BP Sys/Amaral Pulse Ox Last 24 Hr 97.5 F-99.4 F 70-96 18-20 117-154/69-86 96-98 GENERAL: The patient is awake, alert, and fully oriented, in no acute distress. HEAD: Normal with no signs of trauma. EYES: PERRL, extraocular movements intact, sclera anicteric, conjunctiva clear. No ptosis. ENT: Nares patent, oropharynx clear without exudates, moist mucous membranes. NECK: Trachea midline, full range of motion, supple. LUNGS: Breath sounds equal, clear to auscultation bilaterally, no wheezes, no crackles, no accessory muscle use. HEART: Regular rate and rhythm, S1, S2 without murmur, rub or gallop. ABDOMEN: Soft, nontender, nondistended, normoactive bowel sounds, no guarding, no rebound, no hepatosplenomegaly, no masses. EXTREMITIES: 2+ pulses, warm, well-perfused, no edema. NEUROLOGICAL: No facial droop, normal speech, gait not observed. PSYCH: Normal mood, normal affect. SKIN: Warm, dry, normal turgor, no rashes or lesions noted Laboratory Results - last 24 hr 05/09/18 05/09/18 05/10/18 16:16 20:54 05:47 POC Glucometer 98 90 128 05/10/18 11:17 POC Glucometer 112 Active Medications Generic Name Dose Route Start Last Admin Trade Name Freq PRN Reason Stop Dose Admin Acetaminophen 1,000 mg 05/07/18 20:12 05/10/18 12:27 Ofirmev Injection - IVPB 1,000 mg Q6H PRN Administration PAIN Benzocaine/Menthol 1 each 05/08/18 20:28 05/10/18 10:43 Cepacol Lozenge - MM 1 each Q2H PRN Administration SORE THROAT Hydromorphone HCl 1 mg 05/07/18 22:00 05/10/18 13:39 Dilaudid Vial - IVPB 1 mg Q8H SHAQUILLE Administration Potassium Chloride/Dextrose/Sod Cl 20 meq in 1,000 mls @ 100 mls/hr 05/08/18 16:00 05/10/18 13:40 D5-1/2ns+20 Meq Kcl - IV 100 mls/hr ASDIR SHAQUILLE Administration Insulin Aspart 1 vial 05/07/18 22:00 05/10/18 11:30 Novolog Vial Sliding Scale - SQ Not Given ACHS [facility] Protocol Metoprolol Tartrate 2.5 mg 05/07/18 18:23 05/10/18 10:41 Lopressor Injection - IVPB 2.5 mg Q6H-IV SHAQUILLE Administration Non-Formulary Medication 1 each 05/07/18 22:00 05/10/18 10:43 Cyclosporine [Restasis] OU 1 each BID SHAQUILLE Administration Ondansetron HCl 4 mg 05/07/18 20:12 05/10/18 12:38 Zofran Injection IVPUSH 4 mg Q8H PRN Administration NAUSEA AND/OR VOMITING Pantoprazole Sodium 40 mg 05/09/18 10:00 05/10/18 10:43 Protonix Iv IVPUSH 40 mg DAILY SHAQUILLE Administration Phenol/Menthol 1 spray 05/08/18 13:14 05/08/18 14:20 Chloraseptic - MM 1 spr Q6HPO PRN Administration SORE THROAT ASSESSMENT/PLAN: 67 year old female with SBO s/p multiple abdominal surgeries; patient treated conservatively NPO/NG tube which was removed today. No surgical intervention at this time. Small Bowel Obstruction -Improving -NG removed today by surgeon Dr. Cade -Passing flatus, but still no BM -D/c Dilaudid, re-started home PO Oxycodone 10 mg TID -Continue IVF -Will start trial of clear liquids tonight, and advanced at lunch tomorrow -Encourage OOB ambulation -Monitor Labs -If tolerating PO, and BM, should be able to d/c on Tuesday. Elevated Troponin on admission -[place] to not represent ACS; no chest pain or SOB since hospitalized -Followup with [facility] as outpatient for further workup Chronic lower back pain -Secondary to herniated discs -APAP and Oxycodone 10 mg TID for pain -Monitor pain level HLD -Resume Fenofibrate upon d/c HTN -Metoprolol Tartrate 2.5 mg q 6 hrs -Monitor BP DM -A1c 6/7% -SS with novolog -Resume home Xigduo upon d/c GI phrophylaxis -Protonix 40 mg qday FEN -D5 1/2 NS + 20 Meq KCl @ 63 ml/hr -Replete lytes as needed -Starting on clear liquid diet Full Code Dispo based on tolerating PO and BM. Visit type - Emergency Visit Emergency Visit: No - New Patient This patient is new to me today: No - Critical Care Critical Care patient: No
--- NOTE | 2018-05-10 15:21 | PN ---
Progress Note, Physician History of Present Illness: Pt with SBO s/p multiple abdominal surgeries, hostile abdomen by history. NPO/ IVF/NGT clamped since yesterday AXR. Seen and examined in room. Pt c/o throat discomfort from NGT, no true nausea. Passed gas today, no BM. Overall feeling better in abdomen, minimal pain/"soreness" left. Belly is soft, nondistended. She has been ambulating and up in chair. - Current Medication List Current Medications: Active Medications Acetaminophen (Ofirmev Injection -) 1,000 mg IVPB Q6H PRN PRN Reason: PAIN Last Admin: 05/10/18 12:27 Dose: 1,000 mg Benzocaine/Menthol (Cepacol Lozenge -) 1 each MM Q2H PRN PRN Reason: SORE THROAT Last Admin: 05/10/18 10:43 Dose: 1 each Hydromorphone HCl (Dilaudid Vial -) 1 mg IVPB Q8H SHAQUILLE Last Admin: 05/10/18 13:39 Dose: 1 mg Potassium Chloride/Dextrose/Sod Cl (D5-1/2ns+20 Meq Kcl -) 20 meq in 1,000 mls @ 100 mls/hr IV ASDIR [facility] Last Admin: 05/10/18 13:40 Dose: 100 mls/hr Insulin Aspart (Novolog Vial Sliding Scale -) 1 vial SQ ACHS [facility]; Protocol Last Admin: 05/10/18 11:30 Dose: Not Given Metoprolol Tartrate (Lopressor Injection -) 2.5 mg IVPB Q6H-IV SHAQUILLE Last Admin: 05/10/18 10:41 Dose: 2.5 mg Non-Formulary Medication (Cyclosporine [Restasis]) 1 each OU BID [facility] Last Admin: 05/10/18 10:43 Dose: 1 each Ondansetron HCl (Zofran Injection) 4 mg IVPUSH Q8H PRN PRN Reason: NAUSEA AND/OR VOMITING Last Admin: 05/10/18 12:38 Dose: 4 mg Pantoprazole Sodium (Protonix Iv) 40 mg IVPUSH DAILY [facility] Last Admin: 05/10/18 10:43 Dose: 40 mg Phenol/Menthol (Chloraseptic -) 1 spray MM Q6HPO PRN PRN Reason: SORE THROAT Last Admin: 05/08/18 14:20 Dose: 1 spr - Objective Vital Signs: Vital Signs Temperature 97.5 F L 05/10/18 13:28 Pulse Rate 73 05/10/18 13:28 Respiratory Rate 20 05/10/18 13:28 Blood Pressure 144/72 05/10/18 13:28 O2 Sat by Pulse Oximetry (%) 98 05/10/18 09:00 Constitutional: Yes: Well Nourished, No Distress, Calm Eyes: Yes: Conjunctiva Clear, EOM Intact HENT: Yes: Atraumatic, Normocephalic, Other (clamped NGT - removed at bedside.) Gastrointestinal: Yes: Soft, Abdomen, Obese. No: Distention, Tenderness (no sig tenderness, no guarding, much better than on arrival), Tenderness, Epigastrium Musculoskeletal: No: Joint Stiffness, Joint Swelling Extremities: No: Cool, Cyanosis Integumentary: No: Jaundice, Rash Neurological: Yes: Alert, Oriented Labs: no new labs - ....Imaging X-ray: Report Reviewed, Image Reviewed (yesterday's AXR with some contrast in hepatic flexure, no clear obstructive gas pattern, improved from CT) Problem List - Problems (1) Small bowel obstruction due to adhesions Assessment/Plan: no BM yet, but passing gas, nausea much better abd soft, nontender NGT removed continue IVF for now, may try clear liquids tonight if still without N/V and d/ c fluids if still doing ok after breakfast clears, may likely advance as tolerated may resume home Percocet, would avoid other pain meds prn GI/DVT prophylaxis encouraged OOB, chair and use of IS serial exams, consider rechecking labs would not muller to surgical intervention with known hostile abdomen unless emergent discussed with [employer] PROF[employer]OR Lyssa Dr. Marcelino Betancourt will be covering for me until 05/15/18 Code(s): K56.50 - INTESTNL ADHESIONS, UNSP TO PARTIAL VERSUS COMPLETE OBST (2) Epigastric pain Assessment/Plan: resolved Code(s): R10.13 - EPIGASTRIC PAIN (3) Nausea and vomiting Assessment/Plan: resolved Code(s): R11.2 - NAUSEA WITH VOMITING, UNSPECIFIED Qualifiers: Qualified Code(s): R11.2 - Nausea with vomiting, unspecified (4) Bandemia Code(s): D72.825 - B[place]DEM[place]
[2018-05-10] MEDS: METOPROLOL TARTRATE 25 MG TABLET (FP) PO SCH (21:28)
[2018-05-10] MEDS: oxyCODONE HCL 5 MG TABLET PO SCH (21:29)
[2018-05-10] MEDS: ACETAMINOPHEN 325 MG TABLET (FP) PO SCH (21:30)
[2018-05-11] MEDS: D5-1/2NS+20 MEQ KCL - 20 MEQ/1,000 ML INFUS.BAG IV SCH (04:04)
[2018-05-11] MEDS: oxyCODONE HCL 5 MG TABLET PO SCH ×3 (06:13→22:19)
[2018-05-11] MEDS: ACETAMINOPHEN 325 MG TABLET (FP) PO SCH ×3 (06:14→22:19)
[2018-05-11] MEDS: INSULIN SLIDING SCALE (NOVOLOG) 1 VIAL SQ SCH ×5 (06:17→22:20)
[2018-05-11 08:04] LABS: HEMATOCRIT 36.1 % (32.4-45.2); HEMOGLOBIN 11.9 GM/dL (10.7-15.3); MCH 29.8 pg (25.7-33.7); MCHC 32.9 g/dl (32.0-36.0); MEAN CELL VOLUME 90.6 fl (80-96); MEAN PLT VOLUME 8.1 fl (7.5-11.1); PLATELET COUNT 340 K/MM3 (134-434); RBC 3.98 M/mm3 (3.60-5.2); RDW 13.9 % (11.6-15.6); WHITE BLOOD COUNT 9.7 K/mm3 (4.0-10.0)
[2018-05-11] MEDS: HEPARIN NA (PORCINE) 5,000 UNITS/ML 1ML VIAL SQ SCH (08:04)
[2018-05-11 08:32] LABS: ANION GAP 7 MMOL/L (8-16); BLOOD UREA NITROGEN 8 mg/dL (7-18); CALCIUM 9.1 mg/dL (8.5-10.1); CHLORIDE 102 mmol/L (98-107); CO2 29 mmol/L (21-32); CREATININE 0.4 mg/dL (0.55-1.3); GLUCOSE,RANDOM 116 mg/dL (74-106); POTASSIUM 4.7 mmol/L (3.5-5.1); SODIUM 139 mmol/L (136-145)
[2018-05-11] MEDS: PATIENT'S OWN MEDICATION (NON-FORMULARY) (Cyclosporine [Restasis] 1 EACH) OU SCH ×2 (09:58→22:20)
[2018-05-11] MEDS: PANTOPRAZOLE SODIUM 40 MG VIAL IVPUSH SCH (09:58)
[2018-05-11] MEDS: METOPROLOL TARTRATE 25 MG TABLET (FP) PO SCH ×2 (09:59→22:19)
--- NOTE | 2018-05-11 16:18 | PN ---
Physical Exam: SUBJECTIVE: Patient seen and examined, reports pain is well-controlled. OBJECTIVE: Vital Signs Period Temp Pulse Resp BP Sys/Amaral Pulse Ox Last 24 Hr 98.4 F-98.9 F 77-89 19-20 109-121/58-81 98 GENERAL: The patient is awake, alert, and fully oriented, in no acute distress. HEAD: Normal with no signs of trauma. EYES: PERRL, extraocular movements intact, sclera anicteric, conjunctiva clear. No ptosis. ENT: Nares patent, oropharynx clear without exudates, moist mucous membranes. NECK: Trachea midline, full range of motion, supple. LUNGS: Breath sounds equal, clear to auscultation bilaterally, no wheezes, no crackles, no accessory muscle use. HEART: Regular rate and rhythm, S1, S2 without murmur, rub or gallop. ABDOMEN: Soft, nontender, nondistended, normoactive bowel sounds, no guarding, no rebound, no hepatosplenomegaly, no masses. EXTREMITIES: 2+ pulses, warm, well-perfused, no edema. NEUROLOGICAL: No facial droop, normal speech, gait not observed. PSYCH: Normal mood, normal affect. SKIN: Warm, dry, normal turgor, no rashes or lesions noted Laboratory Results - last 24 hr 05/10/18 05/10/18 05/11/18 16:58 21:28 06:16 WBC RBC Hgb Hct MCV MCH MCHC RDW Plt Count MPV Sodium Potassium Chloride Carbon Dioxide Anion Gap BUN Creatinine Creat Clearance w eGFR POC Glucometer 121 100 115 Random Glucose Calcium 05/11/18 05/11/18 05/11/18 07:00 07:00 12:04 WBC 9.7 RBC 3.98 Hgb 11.9 Hct 36.1 MCV 90.6 MCH 29.8 MCHC 32.9 RDW 13.9 Plt Count 340 MPV 8.1 Sodium 139 Potassium 4.7 Chloride 102 Carbon Dioxide 29 Anion Gap 7 L BUN 8 Creatinine 0.4 L Creat Clearance w eGFR > 60 POC Glucometer 119 Random Glucose 116 H Calcium 9.1 Active Medications Generic Name Dose Route Start Last Admin Trade Name Freq PRN Reason Stop Dose Admin Acetaminophen 325 mg 05/10/18 22:00 05/11/18 14:09 Tylenol - PO 325 mg TID SHAQUILLE Administration Benzocaine/Menthol 1 each 05/08/18 20:28 05/10/18 10:43 Cepacol Lozenge - MM 1 each Q2H PRN Administration SORE THROAT Potassium Chloride/Dextrose/Sod Cl 20 meq in 1,000 mls @ 63 mls/hr 05/10/18 15 :34 05/11/18 04:04 D5-1/2ns+20 Meq Kcl - IV 63 mls/hr ASDIR SHAQUILLE Administration Insulin Aspart 1 vial 05/07/18 22:00 05/11/18 12:26 Novolog Vial Sliding Scale - SQ Not Given ACHS [facility] Protocol Metoprolol Tartrate 12.5 mg 05/10/18 22:00 05/11/18 09:59 Lopressor - PO 12.5 mg BID SHAQUILLE Administration Non-Formulary Medication 1 each 05/07/18 22:00 05/11/18 09:58 Cyclosporine [Restasis] OU 1 each BID SHAQUILLE Administration Ondansetron HCl 4 mg 05/07/18 20:12 05/10/18 12:38 Zofran Injection IVPUSH 4 mg Q8H PRN Administration NAUSEA AND/OR VOMITING Oxycodone HCl 10 mg 05/10/18 22:00 05/11/18 14:09 Roxicodone - PO 10 mg TID SHAQUILLE Administration Pantoprazole Sodium 40 mg 05/09/18 10:00 05/11/18 09:58 Protonix Iv IVPUSH 40 mg DAILY SHAQUILLE Administration ASSESSMENT/PLAN: 67 year old female with SBO s/p multiple abdominal surgeries; patient treated conservatively NPO/NG tube which was removed yesterday. No surgical intervention at this time. Small Bowel Obstruction -Improving -NG removed yesterday by surgeon Dr. Cade -Tolerating clear diets well, advance to soft diet -Passing flatus, but still no BM -D/c Dilaudid, re-started home PO Oxycodone 10 mg TID -Continue IVF -Encourage OOB ambulation -Monitor Labs -If tolerating PO, and BM, should be able to d/c tomorrow. Elevated Troponin on admission -[place] to not represent ACS; no chest pain or SOB since hospitalized -Followup with [facility] as outpatient for further workup Chronic lower back pain -Secondary to herniated discs -APAP and Oxycodone 10 mg TID for pain -Monitor pain level HLD -Resume Fenofibrate upon d/c HTN -Metoprolol Tartrate 2.5 mg q 6 hrs -Monitor BP DM -A1c 6/7% -SS with novolog -Resume home Xigduo upon d/c GI phrophylaxis -Protonix 40 mg qday FEN -D5 1/2 NS + 20 Meq KCl @ 63 ml/hr -Replete lytes as needed -Advance to soft diet Full Code Dispo based on tolerating PO and BM. Visit type - Emergency Visit Emergency Visit: No - New Patient This patient is new to me today: No - Critical Care Critical Care patient: No
[2018-05-12] MEDS: oxyCODONE HCL 5 MG TABLET PO SCH (06:39)
[2018-05-12] MEDS: ACETAMINOPHEN 325 MG TABLET (FP) PO SCH (06:39)
[2018-05-12] MEDS: INSULIN SLIDING SCALE (NOVOLOG) 1 VIAL SQ SCH ×2 (06:41→11:28)
[2018-05-12 08:03] LABS: HEMOGLOBIN 11.5 GM/dL (10.7-15.3); MCH 30.4 pg (25.7-33.7); MCHC 33.9 g/dl (32.0-36.0); MEAN CELL VOLUME 89.7 fl (80-96); MEAN PLT VOLUME 8.3 fl (7.5-11.1); PLATELET COUNT 327 K/MM3 (134-434); RBC 3.79 M/mm3 (3.60-5.2); RDW 13.9 % (11.6-15.6); WHITE BLOOD COUNT 8.6 K/mm3 (4.0-10.0)
[2018-05-12] MEDS: D5-1/2NS+20 MEQ KCL - 20 MEQ/1,000 ML INFUS.BAG IV SCH (08:18)
[2018-05-12 08:34] LABS: ANION GAP 8 MMOL/L (8-16); BLOOD UREA NITROGEN 8 mg/dL (7-18); CALCIUM 8.9 mg/dL (8.5-10.1); CHLORIDE 104 mmol/L (98-107); CO2 27 mmol/L (21-32); CREATININE 0.3 mg/dL (0.55-1.3); GLUCOSE,RANDOM 110 mg/dL (74-106); SODIUM 139 mmol/L (136-145)
[2018-05-12 09:11] VITALS: BP 128/78; PULSE 86; TEMP 98.1
[2018-05-12] MEDS: METOPROLOL TARTRATE 25 MG TABLET (FP) PO SCH (09:20)
[2018-05-12] MEDS: PATIENT'S OWN MEDICATION (NON-FORMULARY) (Cyclosporine [Restasis] 1 EACH) OU SCH (09:20)
[2018-05-12] MEDS: PANTOPRAZOLE SODIUM 40 MG VIAL IVPUSH SCH (09:21)
--- NOTE | 2018-05-12 10:40 | DS ---
Physical Exam: SUBJECTIVE: Patient seen and examined. She reports having a BM last night and is tolerating soft food diet, abdominal pain is minimal. . OBJECTIVE: Vital Signs Period Temp Pulse Resp BP Sys/Amaral Pulse Ox Last 24 Hr 97.8 F-98.4 F 57-86 20-20 120-128/58-78 96 PHYSICAL EXAM GENERAL: The patient is awake, alert, and fully oriented, in no acute distress. HEAD: Normal with no signs of trauma. EYES: PERRL, extraocular movements intact, sclera anicteric, conjunctiva clear. ENT: Ears normal, nares patent, oropharynx clear without exudates, moist mucous membranes. NECK: Trachea midline, full range of motion, supple. LUNGS: Breath sounds equal, clear to auscultation bilaterally, no wheezes, no crackles, no accessory muscle use. HEART: Regular rate and rhythm, S1, S2 without murmur, rub or gallop. ABDOMEN: Soft, nontender, nondistended, normoactive bowel sounds, no guarding, no rebound, no hepatosplenomegaly, no masses. EXTREMITIES: 2+ pulses, warm, well-perfused, no edema. NEUROLOGICAL: Cranial nerves II through XII grossly intact. Normal speech, gait not observed. PSYCH: Normal mood, normal affect. SKIN: Warm, dry, normal turgor, no rashes or lesions noted. LABS Laboratory Results - last 24 hr 05/11/18 05/11/18 05/11/18 12:04 17:07 22:18 WBC RBC Hgb Hct MCV MCH MCHC RDW Plt Count MPV Sodium Potassium Chloride Carbon Dioxide Anion Gap BUN Creatinine Creat Clearance w eGFR POC Glucometer 119 89 100 Random Glucose Calcium 05/12/18 05/12/18 05/12/18 06:40 07:00 07:00 WBC 8.6 RBC 3.79 Hgb 11.5 Hct 34.0 MCV 89.7 MCH 30.4 MCHC 33.9 RDW 13.9 Plt Count 327 MPV 8.3 Sodium 139 Potassium 4.0 Chloride 104 Carbon Dioxide 27 Anion Gap 8 BUN 8 Creatinine 0.3 L Creat Clearance w eGFR > 60 POC Glucometer 121 Random Glucose 110 H Calcium 8.9 HOSPITAL COURSE: Date of Admission:05/07/18 Date of Discharge: 05/12/18 67 year old female with a PMH significant for NIDDM, hypertension, hyperlipidemia, multiple herniated discs, chronic pain (follows with pain clinic ), asthma, and ovarian cysts. Small Bowel Obstruction -Presented to the ED with n/v and left-sided epigastric pain. -CT abdomen/pelvis showed mildly dilated small bowel in the left upper abdomen extending from the left upper pelvis with moderate adjacent mesenteric edema compatable with a SBO; no annotation indicating free air or infection -Improved; managed conservatively with NG tube, no surgical intervention at time. -NG removed Tuesday by surgeon Dr. Cade -Kept NPO then advanced to clear liquid diet, now tolerating soft diet -Passing flatus, had BM last night -D/c Dilaudided, re-started home PO Oxycodone 10 mg TID, patient followed at pain management clinic Elevated Troponin on admission -[place] to not represent ACS; no chest pain or SOB since hospitalized -Followup with [facility] as outpatient for further workup Chronic lower back pain -Secondary to herniated discs -APAP and Oxycodone 10 mg TID for pain HLD -Resume Fenofibrate upon d/c HTN -Metoprolol Tartrate 2.5 mg q 6 hrs -Monitor BP DM -A1c 6/7% -Resume home Xigduo upon d/c GI phrophylaxis -Protonix 40 mg qday Minutes to complete discharge: 30 Discharge Summary Reason For Visit: VOMITING Current Active Problems Bandemia (Acute) Elevated troponin (Acute) Epigastric pain (Acute) Nausea and vomiting (Acute) Small bowel obstruction (Acute) Small bowel obstruction due to adhesions (Acute) Condition: Stable - Instructions Diet, Activity, Other Instructions: Ms No Cui, Ruddy were admitted to [facility] for small bowel obstruction from - 05/12/18. Here are our recommendations Small Bowel Obstruction -Soft foods carb/sugar controlled diet. -Advance physical activity as tolerated -Contact your provider if you experience any of the following symptoms: -Distended abdomen -Vomiting -Fever -Many days with no BM. Chronic lower back pain -Oxycodone 10 mg TID for pain -F/u with pain management clinic High Cholesterol -Resume Fenofibrate 145 mg daily Hypertension -Metoprolol Succinate 25 mg daily -Amplodipine/Benazepril 5/10mg daily Diabetes - Xigduo 11/999 mg daily GI phrophylaxis -Protonix 40 mg daily Please follow up with your primary care provider within 2 weeks. I am available for questions. Isa Limonjoshua Karlene @ [facility] [phone] Disposition: HOME - Home Medications Comprehensive Discharge Medication List: Ambulatory Orders Amlodipine Besylate/Benazepril [Lotrel 5-10 mg Capsule] 1 each PO DAILY Butalb/Acetaminophen/Caffeine [Hulsvm-Qjwlemkq-Mjqi 50-325-40] 1 each PO Q4H PRN 03/03/18 Clobetasol Propionate/Emoll [Clobetasol Emollient 0.05% Crm] 15 gm TP BID PRN Cyclosporine [Restasis] 2 each OP BID 03/03/18 Dapagliflozin/Metformin HCl [Xigduo Xr 5 mg-1,000 mg Tablet] 1 each PO DAILY Fenofibrate Nanocrystallized [Fenofibrate] 145 mg PO DAILY 03/03/18 Metaxalone [Skelaxin] 800 mg PO TID PRN 03/03/18 Metoprolol Succinate [Toprol Xl] 25 mg PO DAILY 03/03/18 Oxycodone HCl/Acetaminophen [Oxycodone-Acetaminophen 10-325] 1 each PO TID 05/07 This patient is new to me today: No Emergency Visit: No Critical Care patient: No - Discharge Referral Referred to [facility] No
== END 2018-05-12 12:59 | disposition home or self-care (01) | DRG 390 ==
LOC: FER 17:38 → FM/S 05-07 01:22 → UNDOADMIN 05-07 01:22 → J6S 05-07 18:31
PROVIDERS: ADMIT Internal Medicine; ATTEND Nurse Practitioner Adult Health
DX: K56.50 Intestinal adhesions [bands], unspecified as to partial versus complete obstruction (principal); E11.9 Type 2 diabetes mellitus without complications; Z79.84 Long term (current) use of oral hypoglycemic drugs; E78.5 Hyperlipidemia, unspecified; I11.9 Hypertensive heart disease without heart failure; J45.909 Unspecified asthma, uncomplicated; G89.29 Other chronic pain; G43.909 Migraine, unspecified, not intractable, without status migrainosus; Z87.891 Personal history of nicotine dependence; K59.00 Constipation, unspecified; M19.90 Unspecified osteoarthritis, unspecified site; N83.209 Unspecified ovarian cyst, unspecified side; D72.825 Bandemia; M54.5 Low back pain
CPT/HCPCS: 36415; 71045-TC-FY; 74018-TC-FY; 74019-TC-FY; 74177-TC; 80048; 80053; 80061; 81003; 81015; 82550; 82962; 83036; 83690; 83721; 83735; 84443; 84484; 85025; 85027; 85610; 86850; 86900; 86901; 87086; 93005; 94010; 99285-25; J0131; J1644; J7030

== ENCOUNTER 2022-12-09 06:40 | Day surgery (SDC) | payer BC, OTHER ==
[2022-12-07 09:45] VITALS: BMI 30.1
[2022-12-09] MEDS ORDERED: BUPIVACAINE HCL/PF 0.5% (5MG/ML) 10 ML VIAL ONE (07:21)
[2022-12-09] MEDS ORDERED: LIDOCAINE HCL 1%, 10 MG/ML (20ML VIAL) ONE (07:21)
[2022-12-09] MEDS ORDERED: PROPOFOL 20 ML ONE (07:35)
[2022-12-09] MEDS ORDERED: MIDAZOLAM HCL 2 MG/2 ML SINGLE DOSE VIAL ONE (07:36)
[2022-12-09] MEDS ORDERED: ONDANSETRON 4 MG/2 ML VIAL ONE (08:29)
[2022-12-09] MEDS ORDERED: ceFAZolin SODIUM 1 GM VIAL ONE (08:29)
[2022-12-09 09:06] VITALS: RESP 16; TEMP 96.1
[2022-12-09 09:15] VITALS: BP 112/64; PULSE 56
== END 2022-12-09 09:40 | disposition home or self-care (01) ==
LOC: FASU 06:40
PROVIDERS: ATTEND Orthopaedic Surgery
PROC: 0LB60ZZ Excision of Left Lower Arm and Wrist Tendon, Open Approach (ICD-10-PCS; 2022-12-09)
PROC: 01N50ZZ Release Median Nerve, Open Approach (ICD-10-PCS; principal; 2022-12-09 08:23)
DX: G56.02 Carpal tunnel syndrome, left upper limb (principal); M65.832 Other synovitis and tenosynovitis, left forearm
CPT/HCPCS: 82962; 88304-TC

== ENCOUNTER 2023-06-01 17:55 | Emergency (ER) | payer BC, OTHER ==
[2023-06-01 18:21] VITALS: BP 150/73; PULSE 75; RESP 17; TEMP 98.1; BMI 31.8
[2023-06-01] MEDS ORDERED: ACETAMINOPHEN 325 MG TABLET (FP) PO ONE (18:52)
[2023-06-01] MEDS ORDERED: METHOCARBAMOL 500 MG TABLET PO ONE (19:04)
[2023-06-01] MEDS ORDERED: METHOCARBAMOL 500 MG TABLET ONE (19:14)
[2023-06-01] MEDS ORDERED: KETOROLAC TROMETHAMINE 30 MG/1 ML VIAL IM ONE (20:10)
[2023-06-01] MEDS ORDERED: KETOROLAC TROMETHAMINE 30 MG/1 ML VIAL ONE (20:17)
== END 2023-06-01 20:39 | disposition home or self-care (01) ==
LOC: FER 17:55
PROC: 3E0233Z Introduction of Anti-inflammatory into Muscle, Percutaneous Approach (ICD-10-PCS; principal; 2023-06-01)
DX: M25.512 Pain in left shoulder (principal)
CPT/HCPCS: 73030-TC-RT-FY; 73060-TC-RT-FY; 99284-25